=== PATIENT | male | born 1945 | race Caucasian/White ===

== ENCOUNTER 2019-01-27 10:31 | Inpatient (IN) | payer OTHER, BC ==
--- NOTE | 2019-01-27 10:58 | PDOC ---
History of Present Illness - General Chief Complaint: Edema Stated Complaint: LEG SWELLING Time Seen by Provider: 01/27/19 10:32 - History of Present Illness Initial Comments: 01/27/19 10:53 73 yo M PMH HTN, HLD, b/l rotator cuff surgeries with loss of full ROM on R shoulder, 1.5 ppd smoker, p/w b/l leg swelling. Reports that the swelling has been present for the past 3 weeks, initially only in the feet but now progressing up to his knee over the past week. Has never had this issue in the past. Began to have SHAH last week, without SOB at rest. For the past 3 days, patient reports that he has not been moving around due to his legs feeling so heavy. Specifically denies CP, SOB at rest, abdominal pain, AGARWAL, N/V, recent travel, recent immobilization, recent surgery. Endorses SHAH and leg swelling. Past History - Past Medical History Allergies/Adverse Reactions: Allergies Allergy/AdvReac Type Severity Reaction Status Date / Time No Known Allergies Allergy Verified 01/27/19 10:32 Home Medications: Ambulatory Orders Amlodipine Besylate [Norvasc -] 5 mg PO HS 01/27/19 Aspirin [ASA -] 325 mg PO HS 01/27/19 Gabapentin [Neurontin] 300 mg PO HS 01/27/19 Losartan Potassium [Cozaar] 100 mg PO DAILY 01/27/19 Nebivolol HCl [Bystolic] 10 mg PO DAILY 01/27/19 Rosuvastatin Calcium [Crestor] 5 mg PO HS 01/27/19 Anemia: No Asthma: No Cancer: No Cardiac Disorders: No CVA: No COPD: No CHF: No Dementia: No Diabetes: No GI Disorders: No Disorders: No HTN: Yes Hypercholesterolemia: Yes Liver Disease: No Seizures: No Thyroid Disease: No - Surgical History Abdominal Surgery: No Cardiac Surgery: No Lung Surgery: No Neurologic Surgery: No Orthopedic Surgery: Yes (RIGHT KNEE MENISCUS REPAIR) - Psycho Social/Smoking Cessation Hx Smoking History: Current every day smoker Have you smoked in the past 12 months: Yes Number of Cigarettes Smoked Daily: 30 Information on smoking cessation initiated: Yes Hx Alcohol Use: Yes (DAILY) Drug/Substance Use Hx: No Substance Use Type: Alcohol Hx Substance Use Treatment: No Review of Systems - Review of Systems Comments:: 01/27/19 10:56 GENERAL/CONSTITUTIONAL: No fever or chills. No weakness. HEAD, EYES, EARS, NOSE AND THROAT: No change in vision. No ear pain or discharge. No sore throat. CARDIOVASCULAR: No chest pain or shortness of breath. Endorses dyspnea on exertion. RESPIRATORY: No cough, wheezing, or hemoptysis. GASTROINTESTINAL: No nausea, vomiting, diarrhea or constipation. GENITOURINARY: No dysuria, frequency, or change in urination. MUSCULOSKELETAL: No joint or muscle swelling or pain. No neck or back pain. SKIN: No rash NEUROLOGIC: No headache, vertigo, loss of consciousness, or change in strength/ sensation. ENDOCRINE: No increased thirst. No abnormal weight change. HEMATOLOGIC/LYMPHATIC: No anemia, easy bleeding, or history of blood clots. ALLERGIC/IMMUNOLOGIC: No hives or skin allergy *Physical Exam - Vital Signs Last Vital Signs Temp Pulse Resp BP Pulse Ox 97.8 F 92 H 20 141/78 97 01/27/19 10:32 01/27/19 10:32 01/27/19 10:32 01/27/19 10:32 01/27/19 10:32 - Physical Exam 01/27/19 10:57 Gen: well-developed, well-nourished, NAD Neuro: AAOX4, CN II-XII intact, FTN intact, EOMI, PERRLA, 5/5 strength, SILT HEENT: atraumatic, normocephalic Neck: trachea midline, supple CV: regular rate, irregularly irregular, no murmurs, rubs, or gallops Pulm: coarse lung sounds b/l Abd: soft, non-distended, non-tender MSK: full ROM, intact pulses Extr: 3+ symmetric bilateral pitting edema to the knees, no deformities Skin: warm, dry ED Treatment Course - LABORATORY CBC & Chemistry Diagram: 01/27/19 10:57 01/27/19 10:52 - RADIOLOGY Radiology Studies Ordered: Category Date Time Status CHEST PA & LAT [RAD] Stat Radiology 01/27/19 10:52 Ordered Medical Decision Making - Medical Decision Making 01/27/19 10:52 Concern for acute onset CHF v venous stasis. B/l DVTs unlikely considering symmetric nature, no recent travel, no recent immobilization, history of disease. - CBC, CMP, BNP - EKG, trop - Chest PA + L 01/27/19 11:07 EKG with atrial fibrillation at 88 bpm, diffuse T wave flattening. Patient without known history of atrial fibrillation. 01/27/19 11:34 Na 127, Cl 94. Trop negative. 01/27/19 12:10 CXR with R lower lobe infiltrate. No systemic symptoms of cough, SOB, or fevers , but will give ceftriaxone and azithromycin. 01/27/19 12:45 BNP 1075.4. Discharge - Discharge Information Problems reviewed: Yes Clinical Impression/Diagnosis: Leg swelling, Atrial fibrillation Condition: Stable - Follow up/Referral Referrals: Sanket Becker MD [Primary Care Provider] - - Patient Discharge Instructions - Post Discharge Activity
[2019-01-27 11:07] LABS: BASO % 2.8 % (0-2.0); EOS % 0.3 % (0-4.5); HEMATOCRIT 43.5 % (35.4-49); HEMOGLOBIN 14.5 GM/dl (11.7-16.9); LYMPH % 13.3 % (8-40); MCH 34.5 pg (25.7-33.7); MCHC 33.4 g/dl (32.0-35.9); MEAN CELL VOLUME 103.4 fl (80-96); MONO % 6.7 % (3.8-10.2); NEUT % 76.9 % (42.8-82.8); RBC 4.21 M/mm3 (4.00-5.60); RDW 12.7 % (11.9-15.9); WHITE BLOOD COUNT 10.2 K/mm3 (4.0-10.8)
[2019-01-27 11:23] LABS: ALBUMIN 3.8 g/dl (3.4-5.0); BILIRUBIN,TOTAL 1.6 mg/dl (0.2-1); CALCIUM 8.7 mg/dl (8.5-10); POTASSIUM 4.1 mmol/L (3.5-5.1); TOT PROT 6.5 g/dl (6.4-8.2)
[2019-01-27 11:25] LABS: MEAN PLT VOLUME 7.7 fl (7.5-11.1); PLATELET COUNT 288 K/MM3 (134-434)
[2019-01-27 11:34] LABS: INR 1.2 (0.82-1.09); PROTHROMBIN TIME (PATIENT) 13.4 SEC (10.2-13.0)
--- NOTE | 2019-01-27 11:46 | PDOC ---
Attending Attestation - Resident Resident Name: Naveen Palm - ED Attending Attestation I have performed the following: I have examined & evaluated the patient, The case was reviewed & discussed with the resident, I agree w/resident's findings & plan, Exceptions are as noted - HPI HPI: 01/27/19 11:30 73-year-old male with a history of hypertension, hyperlipidemia, active smoker presents to the emergency department with 3 weeks of progressive lower extremity edema associated with 1 week of dyspnea on exertion. Patient reports the lower extremity edema is equal between both of his legs. He does not note a change in the beginning or end of the day. He denies any recent travel or immobility. He does note that it is been harder to get around for the past 3 days due to the heaviness in both of his legs from the swelling. He spoke with his primary care physician Dr. Becker who advised him to come into the emergency department for evaluation. He reports dyspnea on exertion when helping his carry the groceries which is new this week. He denies any chest pain. Denies any dizziness, focal weakness or numbness, no diaphoresis, abdominal pain , nausea, vomiting, diarrhea, urinary symptoms. - Physicial Exam PE: 01/27/19 11:46 GENERAL: Awake, alert, and fully oriented, in no acute distress EYES: PERRLA, EOMI, sclera anicteric, conjunctiva clear ENT: Oropharynx clear without exudates. Moist mucosa NECK: Normal ROM, supple, no lymphadenopathy, JVD, or masses LUNGS: Diminished BS at the bases, course BS throughout. No wheezes, and no crackles HEART: Irregularly irregular, normal S1 and S2, no murmurs, rubs or gallops ABDOMEN: Soft, nontender, normoactive bowel sounds. No guarding, no rebound. No masses EXTREMITIES: 2+ pitting edema to knees b/l, symmetric, mildly tender. WWP distally NEUROLOGICAL: Normal speech, cranial nerves intact, equal strength and sensation b/l SKIN: Warm, Dry, normal turgor, no rashes or lesions noted. - Medical Decision Making 01/27/19 11:48 73-year-old male with a history of hypertension, hyperlipidemia presents to the emergency department with dyspnea on exertion and progressive bilateral lower extremity edema. EKG consistent with new onset atrial fibrillation. Likely CHF in the setting of new A. fib. Will obtain labs including troponin, BNP, and chest x-ray. Anticipate admission.
[2019-01-27] MEDS ORDERED: FUROSEMIDE 40 MG/4 ML INJECTABLE VIAL IVPUSH ONE (12:06)
[2019-01-27] MEDS ORDERED: CEFTRIAXONE 1 GM in DEXTROSE 5%-WATER - 100 ML IVPB ONE (12:10)
[2019-01-27] MEDS ORDERED: AZITHROMYCIN IVPB 500 MG in DEXTROSE 5%-WATER - 250 ML IVPB ONE (12:10)
[2019-01-27] MEDS ORDERED: cefTRIAXone SODIUM 1 GM VIAL ONE (12:13)
[2019-01-27] MEDS ORDERED: FUROSEMIDE 40 MG/4 ML INJECTABLE VIAL ONE (12:13)
[2019-01-27] MEDS ORDERED: AZITHROMYCIN 500 MG VIAL IVPB ONE (12:31)
[2019-01-27 15:16] VITALS: BMI 30.8
--- NOTE | 2019-01-27 15:17 | HP ---
CHIEF COMPLAINT: Lower extremity swelling PCP: Dr. Becker HISTORY OF PRESENT ILLNESS: 73 year-old male with a PMH significant for HTN, HLD, active smoker, who presents to the ED with lower extremity edema x 3 weeks. Edema started in his feet and progressed up his legs to the point that as of about 4 days ago he was unable to lift his legs or walk because his legs were so heavy. He reports one week of SHAH, became SOB helping his carry groceries. Denies chest pain, palpitations, lightheadedness, syncope, orthopnea. Denies fever, sweats, chills. 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 Smoking: current every day smoker Alcohol: daily vodka - 2-3 drinks Drugs: no Allergies No Known Allergies Allergy (Verified 01/27/19 10:32) HOME MEDICATIONS: Home Medications Medication Instructions Recorded Amlodipine Besylate [Norvasc -] 5 mg PO HS 01/27/19 Aspirin [ASA -] 325 mg PO HS 01/27/19 Gabapentin [Neurontin] 300 mg PO HS 01/27/19 Losartan Potassium [Cozaar] 100 mg PO DAILY 01/27/19 Nebivolol HCl [Bystolic] 10 mg PO DAILY 01/27/19 Rosuvastatin Calcium [Crestor] 5 mg PO HS 01/27/19 REVIEW OF SYSTEMS CONSTITUTIONAL: Absent: fever, chills, diaphoresis, generalized weakness, malaise, loss of appetite, weight change HEENT: Absent: rhinorrhea, nasal congestion, throat pain, throat swelling, difficulty swallowing, mouth swelling, ear pain, eye pain, visual changes CARDIOVASCULAR: Absent: chest pain, syncope, palpitations, irregular heart rate, lightheadedness , peripheral edema RESPIRATORY: Absent: cough, shortness of breath, dyspnea with exertion, orthopnea, wheezing, stridor, hemoptysis GASTROINTESTINAL: Absent: abdominal pain, abdominal distension, nausea, vomiting, diarrhea, constipation, melena, hematochezia GENITOURINARY: Absent: dysuria, frequency, urgency, hesitancy, hematuria, flank pain, genital pain MUSCULOSKELETAL: Absent: myalgia, arthralgia, joint swelling, back pain, neck pain SKIN: Absent: rash, itching, pallor HEMATOLOGIC/IMMUNOLOGIC: Absent: easy bleeding, easy bruising, lymphadenopathy, frequent infections ENDOCRINE: Absent: unexplained weight gain, unexplained weight loss, heat intolerance, cold intolerance NEUROLOGIC: Absent: headache, focal weakness or paresthesias, dizziness, unsteady gait, seizure, mental status changes, bladder or bowel incontinence PSYCHIATRIC: Absent: anxiety, depression, suicidal or homicidal ideation, hallucinations. PHYSICAL EXAMINATION Vital Signs - 24 hr 01/27/19 01/27/19 01/27/19 10:32 12:26 13:43 Temperature 97.8 F 98.2 F Pulse Rate 92 H Pulse Rate [ 81 84 Apical] Respiratory 24 H 24 H 22 H Rate Blood Pressure 141/78 Blood Pressure 119/95 103/62 [Right Arm] O2 Sat by Pulse 97 96 97 Oximetry (%) 01/27/19 01/27/19 14:05 14:31 Temperature 98.8 F 98.8 F Pulse Rate 86 86 Pulse Rate [ Apical] Respiratory 16 16 Rate Blood Pressure 106/62 106/62 Blood Pressure [Right Arm] O2 Sat by Pulse 94 L Oximetry (%) GENERAL: Awake, alert, and fully oriented, in no acute distress. HEAD: Normal with no signs of trauma. EYES: Pupils equal, round and reactive to light, extraocular movements intact, sclera anicteric, conjunctiva clear. EARS, NOSE, THROAT: Ears normal, nares patent, oropharynx clear without exudates. Moist mucous membranes. NECK: Normal range of motion, supple without lymphadenopathy, JVD, or masses. LUNGS: Coarse breath sounds diffusely HEART: Irregular S1, S2 ABDOMEN: Soft, nontender, not distended UPPER EXTREMITIES: 2+ pulses, warm, well-perfused. No cyanosis. No clubbing. No peripheral edema. LOWER EXTREMITIES: 2+ pulses, warm, well-perfused. No calf tenderness. 4+ pitting edema b/l NEUROLOGICAL: Cranial nerves II-XII intact. Normal speech. Laboratory Results - last 24 hr 01/27/19 01/27/19 01/27/19 10:52 10:52 10:52 WBC RBC Hgb Hct MCV MCH MCHC RDW Plt Count MPV Absolute Neuts (auto) Neutrophils % Lymphocytes % Monocytes % Eosinophils % Basophils % PT with INR INR PTT (Actin FS) Sodium 127 L Potassium 4.1 Chloride 94 L Carbon Dioxide 25 Anion Gap 8 BUN 17.0 Creatinine 1.0 Est GFR (CKD-EPI)AfAm 85.55 Est GFR (CKD-EPI)NonAf 73.82 Random Glucose 96 Calcium 8.7 Total Bilirubin 1.6 H AST 27 ALT 29 Alkaline Phosphatase 74 Troponin I < 0.03 B-Natriuretic Peptide 1075.4 H Total Protein 6.5 Albumin 3.8 01/27/19 01/27/19 01/27/19 10:57 11:08 11:08 WBC 10.2 RBC 4.21 Hgb 14.5 Hct 43.5 MCV 103.4 H MCH 34.5 H MCHC 33.4 RDW 12.7 Plt Count 288 MPV 7.7 Absolute Neuts (auto) 7.8 Neutrophils % 76.9 Lymphocytes % 13.3 Monocytes % 6.7 Eosinophils % 0.3 Basophils % 2.8 H D PT with INR 13.4 H INR 1.20 PTT (Actin FS) 30.8 Sodium Potassium Chloride Carbon Dioxide Anion Gap BUN Creatinine Est GFR (CKD-EPI)AfAm Est GFR (CKD-EPI)NonAf Random Glucose Calcium Total Bilirubin AST ALT Alkaline Phosphatase Troponin I B-Natriuretic Peptide Total Protein Albumin ASSESSMENT/PLAN: 73 year-old male with a PMH significant for HTN, HLD, active smoker, admitted for newly diagnosed atrial fibrillation, and suspected heart failure, and hyponatremia. Newly diagnosed atrial fibrillation --symptomatic x 3 weeks --ECG: afib @ 88bpm --has been on Bystolic for HTN, will continue as rate is well-controlled --[id number] Score 2; start Eliquis 5mg BID --Echo in am --cardiology consult --telemetry monitoring r/o Heart failure --significant lower extremity edema, BNP 1075 --Lasix IVP 40mg BID --strict I&Os --daily weights; dry weight is 90.9kg, is 97.5kg on admission Hyponatremia --should improve with diuresis, check labs in am Segmental RLL lung infiltrate --afebrile, no leukocytosis, and worsening of baseline cough secondary to smoking --repeat cxr FEN Fluids: PO intake adequate Electrolytes: replete as indicated Nutrition: low sodium DVT prophylaxis: on Eliquis Physical therapy Dispo: continues to require inpatient care. Full code. Visit type - Emergency Visit Emergency Visit: Yes ED Registration Date: 01/27/19 Care time: The patient presented to the Emergency Department on the above date and was hospitalized for further evaluation of their emergent condition. - New Patient This patient is new to me today: Yes Date on this admission: 01/28/19 - Critical Care Critical Care patient: No
[2019-01-27] MEDS: ROSUVASTATIN CA 5 MG TABLET (FP) PO SCH (22:00)
[2019-01-27] MEDS: GABAPENTIN 300 MG CAPSULE (FP) PO SCH (22:00)
[2019-01-27] MEDS: amLODIPine BESYLATE 5 MG TABLET (FP) PO SCH (22:01)
[2019-01-27] MEDS: ASPIRIN 325 MG TABLET PO SCH (22:01)
[2019-01-28] MEDS: FUROSEMIDE 40 MG/4 ML INJECTABLE VIAL IVPUSH SCH ×2 (06:02→14:05)
[2019-01-28 08:05] LABS: BASO % 0.5 % (0-2.0); EOS % 0.4 % (0-4.5); HEMATOCRIT 42.1 % (35.4-49); LYMPH % 10.3 % (8-40); MCH 34.6 pg (25.7-33.7); MCHC 33.3 g/dl (32.0-35.9); MEAN CELL VOLUME 103.8 fl (80-96); MEAN PLT VOLUME 8.3 fl (7.5-11.1); MONO % 7.9 % (3.8-10.2); NEUT % 80.9 % (42.8-82.8); PLATELET COUNT 274 K/MM3 (134-434); RBC 4.06 M/mm3 (4.00-5.60); RDW 12.6 % (11.9-15.9); WHITE BLOOD COUNT 10.1 K/mm3 (4.0-10.8)
[2019-01-28 08:28] LABS: ALBUMIN 3.4 g/dl (3.4-5.0); BILIRUBIN,TOTAL 1.3 mg/dl (0.2-1); CALCIUM 8.9 mg/dl (8.5-10); CREATININE 0.9 mg/dl (0.55-1.3); MAGNESIUM 1.6 mg/dL (1.8-2.4); TOT PROT 5.8 g/dl (6.4-8.2)
[2019-01-28] MEDS ORDERED: MAGNESIUM SULF 50% (8.12 MEQ/2 ML-1 GM VIAL) IVPB ONE (09:03)
[2019-01-28] MEDS ORDERED: MAGNESIUM SULFATE IN WATER 2 GM/50 ML IVPB IVPB ONE (09:15)
[2019-01-28] MEDS: APIXABAN 5 MG TABLET PO SCH ×2 (09:21→21:23)
[2019-01-28] MEDS: NEBIVOLOL 10 MG TABLET (FP) PO SCH (09:22)
[2019-01-28] MEDS: LOSARTAN POTASSIUM 50 MG TABLET (FP) PO SCH (09:22)
[2019-01-28] MEDS ORDERED: ENOXAPARIN NA (PORCINE) 40 MG/0.4 ML DISP.SYRIN SQ SCH (10:00)
--- NOTE | 2019-01-28 10:09 | EKG ---
Test Reason : Blood Pressure : / mmHG Vent. Rate : 088 BPM Atrial Rate : 065 BPM P-R Int : 000 ms QRS Dur : 074 ms QT Int : 358 ms P-R-T Axes : 000 016 217 degrees QTc Int : 433 ms ATRIAL FIBRILLATION NONSPECIFIC ST AND T WAVE ABNORMALITY ABNORMAL ECG NO PREVIOUS ECGS AVAILABLE Confirmed by YANELY YEE MD ([id number]) on 01/28/2019 10:09:08 AM Referred By: Confirmed By:YANELY YEE MD
--- NOTE | 2019-01-28 15:33 | ECHO ---
Name: ISAAC LOGAN Exam:Adult Echocardiogram Study Date: 01/28/2019 01:29 PM Age: 73 yrs Reason For Study: CHF Height: 70 in Weight: 209 lb BSA: 2.1 m2 MMode/2D Measurements & Calculations Ao root diam: 3.2 cm LVOT diam: 2.0 cm LA dimension: 3.8 cm Doppler Measurements & Calculations MV E max kurt: 94.2 cm/sec MV A max kurt: 27.6 cm/sec MV dec slope: 400.0 cm/sec2 MV E/A: 3.4 Ao V2 max: 104.8 cm/sec LV V1 max P.0 mmHg Ao max P.4 mmHg LV V1 max: 71.4 cm/sec TIFFANIE(V,D): 2.2 cm2 TR max kurt: 303.0 cm/sec PA V2 max: 73.3 cm/sec TR max P.7 mmHg PA max P.1 mmHg Procedure A two-dimensional transthoracic echocardiogram with color flow and Doppler was performed. The study w as technically difficult with many images being suboptimal in quality. Left Ventricle The left ventricular size, thickness and function are normal. The left ventricle is not well visualiz ed. The left ventricular ejection fraction is normal. Regional wall motion abnormalities cannot be excluded d ue to limited visualization. Right Ventricle The right ventricle is not well visualized. Atria Normal left and right atrial size and function. Mitral Valve The mitral valve is not well visualized. There is no mitral valve stenosis. There is trace to mild mi tral regurgitation. Tricuspid Valve The tricuspid valve is not well visualized. There is no tricuspid stenosis. There is mild tricuspid regurgitation. Right ventricular systolic pressure is elevated at 40-50mmHg. Aortic Valve The aortic valve is not well visualized. No hemodynamically significant valvular aortic stenosis. No aortic regurgitation is present. Pulmonic Valve The pulmonic valve is not well visualized. Great Vessels The aortic root is normal size. Pericardium/Pleura There is no pericardial effusion. Interpretation Summary The left ventricular ejection fraction is normal. The left ventricle is not well visualized. The left ventricular size, thickness and function are normal The study was technically difficult with many images being suboptimal in quality. There is mild tricuspid regurgitation. Right ventricular systolic pressure is elevated at 40-50mmHg. Regional wall motion abnormalities cannot be excluded due to limited visualization. There is trace to mild mitral regurgitation. MD Bartolo Weller 01/28/2019 03:33 PM
--- NOTE | 2019-01-28 16:24 | CON.CARD ---
Cardiology Consult (text) - Consultation Consultation Note: cc: le edema, sob hpi: 73 m hx htn, hld, here with le edema , sob. Past few weeks pt noticed worsening le edema and sharif. No cp palps dizzy loc pnd orthopnea. No hx hrt dz. Found to have new afib and dchf. pmh: per hpi psh: shoulder surgery social: +tob fam: no premature cad, scd ros: per hpi; all others nl meds: Home Medications Medication Instructions Recorded Amlodipine Besylate [Norvasc -] 5 mg PO HS 01/27/19 Aspirin [ASA -] 325 mg PO HS 01/27/19 Gabapentin [Neurontin] 300 mg PO HS 01/27/19 Losartan Potassium [Cozaar] 100 mg PO DAILY 01/27/19 Nebivolol HCl [Bystolic] 10 mg PO DAILY 01/27/19 Rosuvastatin Calcium [Crestor] 5 mg PO HS 01/27/19 pe: Vital Signs Period Temp Pulse Resp BP Sys/Hartman Pulse Ox Last 24 Hr 98.4 F-98.8 F 69-84 - 106-130/63-66 90-96 nad no jvd irreg s1s2 no mrg cta bl nl eff aao3 trace le edema bl, no c/c abd nt nd pos bs no jaundice diaphoresis pos dp pt no carotid bruits Laboratory Last Values WBC 10.1 K/mm3 (4.0-10.8) 01/28/19 07:09 RBC 4.06 M/mm3 (4.00-5.60) 01/28/19 07:09 Hgb 14.0 GM/dl (11.7-16.9) 01/28/19 07:09 Hct 42.1 % (35.4-49) 01/28/19 07:09 MCV 103.8 fl (80-96) H 01/28/19 07:09 MCH 34.6 pg (25.7-33.7) H 01/28/19 07:09 MCHC 33.3 g/dl (32.0-35.9) 01/28/19 07:09 RDW 12.6 % (11.9-15.9) 01/28/19 07:09 Plt Count 274 K/MM3 (134-434) 01/28/19 07:09 MPV 8.3 fl (7.5-11.1) 01/28/19 07:09 Absolute Neuts (auto) 8.2 K/mm3 01/28/19 07:09 Neutrophils % 80.9 % (42.8-82.8) 01/28/19 07:09 Lymphocytes % 10.3 % (8-40) D 01/28/19 07:09 Monocytes % 7.9 % (3.8-10.2) 01/28/19 07:09 Eosinophils % 0.4 % (0-4.5) 01/28/19 07:09 Basophils % 0.5 % (0-2.0) 01/28/19 07:09 PT with INR 13.4 SEC (10.2-13.0) H 01/27/19 11:08 INR 1.20 (0.82-1.09) 01/27/19 11:08 PTT (Actin FS) 30.8 SECONDS (25.2-36.5) 01/27/19 11:08 Sodium 131 mmol/L (136-145) L 01/28/19 07:09 Potassium 4.0 mmol/L (3.5-5.1) 01/28/19 07:09 Chloride 94 mmol/L (98-107) L 01/28/19 07:09 Carbon Dioxide 28 mmol/L (21-32) 01/28/19 07:09 Anion Gap 9 MMOL/L (8-16) 01/28/19 07:09 BUN 13.0 mg/dl (7-18) 01/28/19 07:09 Creatinine 0.9 mg/dl (0.55-1.3) 01/28/19 07:09 Est GFR (CKD-EPI)AfAm 97.17 01/28/19 07:09 Est GFR (CKD-EPI)NonAf 83.84 01/28/19 07:09 Random Glucose 101 mg/dl (74-106) 01/28/19 07:09 Calcium 8.9 mg/dl (8.5-10) 01/28/19 07:09 Magnesium 1.6 mg/dL (1.8-2.4) L 01/28/19 07:09 Total Bilirubin 1.3 mg/dl (0.2-1) H 01/28/19 07:09 AST 24 U/L (15-37) 01/28/19 07:09 ALT 24 U/L (13-61) 01/28/19 07:09 Alkaline Phosphatase 68 U/L (45-117) 01/28/19 07:09 Troponin I < 0.03 ng/ml (0.00-0.05) 01/27/19 10:52 B-Natriuretic Peptide 1075.4 pg/ml (5-125) H 01/27/19 10:52 Total Protein 5.8 g/dl (6.4-8.2) L 01/28/19 07:09 Albumin 3.4 g/dl (3.4-5.0) 01/28/19 07:09 cxr: no chf tele: afib, rate ok ecg: afib 88, nl qtc, no ischemic changes echo 01/2019: nl lvef, tds rv, mild tr, rvsp 40-50 a/p: 73 m hx htn, hld, here with le edema , sob. afib: -new onset afib -cont bb for rate control, cont tele -chadsvasc warrants ac, cont eliquis acute diastolic chf: -possibly secondary to afib -vol status improving with iv lasix, cont same, daily chem7, wt htn: -cont current meds hld: -cont statin tob use: -smoking cessation discussed
[2019-01-28] MEDS: ASPIRIN 325 MG TABLET PO SCH (21:22)
[2019-01-28] MEDS: GABAPENTIN 300 MG CAPSULE (FP) PO SCH (21:23)
[2019-01-28] MEDS: amLODIPine BESYLATE 5 MG TABLET (FP) PO SCH (21:23)
[2019-01-28] MEDS: ROSUVASTATIN CA 5 MG TABLET (FP) PO SCH (21:23)
--- NOTE | 2019-01-28 22:10 | PN ---
Physical Exam: SUBJECTIVE: Patient seen and examined at bedside. Walked with PT today, was able to move legs a little better but felt SOB. No chest pain, palpitations. OBJECTIVE: Vital Signs Period Temp Pulse Resp BP Sys/Hartman Pulse Ox Last 24 Hr 98.4 F-99 F 77-89 16-19 117-130/63-65 90-96 GENERAL: The patient is awake, alert, and fully oriented, in no acute distress. LUNGS: Breath sounds equal, clear to auscultation HEART: Irregular, S1, S2 . EXTREMITIES: 2+ pulses, warm, well-perfused; 2+ bilateral lower ext edema, improved NEUROLOGICAL: Cranial nerves II through XII grossly intact. Normal speech, gait not observed. Laboratory Results - last 24 hr 01/28/19 01/28/19 07:09 07:09 WBC 10.1 RBC 4.06 Hgb 14.0 Hct 42.1 MCV 103.8 H MCH 34.6 H MCHC 33.3 RDW 12.6 Plt Count 274 MPV 8.3 Absolute Neuts (auto) 8.2 Neutrophils % 80.9 Lymphocytes % 10.3 D Monocytes % 7.9 Eosinophils % 0.4 Basophils % 0.5 Sodium 131 L Potassium 4.0 Chloride 94 L Carbon Dioxide 28 Anion Gap 9 BUN 13.0 Creatinine 0.9 Est GFR (CKD-EPI)AfAm 97.17 Est GFR (CKD-EPI)NonAf 83.84 Random Glucose 101 Calcium 8.9 Magnesium 1.6 L Total Bilirubin 1.3 H AST 24 ALT 24 Alkaline Phosphatase 68 Total Protein 5.8 L Albumin 3.4 Active Medications Generic Name Dose Route Start Last Admin Trade Name Aster PRN Reason Stop Dose Admin Amlodipine Besylate 5 mg 01/27/19 22:00 01/28/19 21:23 Norvasc - PO 5 mg HS GEORGES Administration Apixaban 5 mg 01/28/19 10:00 01/28/19 21:23 Eliquis - PO 5 mg BID GEORGES Administration Aspirin 325 mg 01/27/19 22:00 01/28/19 21:22 Asa - PO 325 mg HS GEORGES Administration Furosemide 40 mg 01/28/19 06:00 01/28/19 14:05 Lasix Injection - IVPUSH 40 mg BID@0600,1400 GEORGES Administration Gabapentin 300 mg 01/27/19 22:00 01/28/19 21:23 Neurontin - PO 300 mg HS GEORGES Administration Losartan Potassium 100 mg 01/28/19 10:00 01/28/19 09:22 Cozaar - PO 100 mg DAILY GEORGES Administration Nebivolol 10 mg 01/28/19 10:00 01/28/19 09:22 Bystolic - PO 10 mg DAILY GEORGES Administration Rosuvastatin Calcium 5 mg 01/27/19 22:00 01/28/19 21:23 Crestor - PO 5 mg HS GEORGES Administration ASSESSMENT/PLAN 73 year-old male with a PMH significant for HTN, HLD, active smoker, admitted for newly diagnosed atrial fibrillation, and suspected heart failure, and hyponatremia. Newly diagnosed atrial fibrillation --ECG: afib @ 88bpm --continue Bystolic, rate is well-controlled --[id number] Score 2; continue Eliquis 5mg BID --cardiology following --telemetry monitoring Acute diastolic heart failure --Echo: suboptimal study; neither LV nor RV well-visualized but EF is assessed as normal; cannot assess RWMA; mild TR; pHTN; trace MR --significant lower extremity edema, BNP 1075 --diagnosis of acute diastolic HF per cardiology --continue Lasix IVP 40mg BID --strict I&Os --daily weights; dry weight is 90.9kg; 97.5kg on admission, down 3kg today Hyponatremia --improved with diuresis Segmental RLL lung infiltrate --afebrile, no leukocytosis, and worsening of baseline cough secondary to smoking --repeat CXR pending Hypomagnesemia --repleted FEN Fluids: PO intake adequate Electrolytes: replete as indicated Nutrition: low sodium DVT prophylaxis: on Eliquis Physical therapy Dispo: continues to require inpatient care. Full code. Visit type - Emergency Visit Emergency Visit: Yes ED Registration Date: 01/27/19 Care time: The patient presented to the Emergency Department on the above date and was hospitalized for further evaluation of their emergent condition. - New Patient This patient is new to me today: No - Critical Care Critical Care patient: No
[2019-01-29] MEDS: MINERAL OIL/PET HY-PHL TOPICAL OINTMENT 454 GM JAR TP SCH ×3 (02:06→21:25)
[2019-01-29] MEDS: FUROSEMIDE 40 MG/4 ML INJECTABLE VIAL IVPUSH SCH ×2 (06:00→13:19)
[2019-01-29 09:23] LABS: CALCIUM 9.2 mg/dl (8.5-10); CREATININE 0.9 mg/dl (0.55-1.3); MAGNESIUM 1.7 mg/dL (1.8-2.4); POTASSIUM 3.8 mmol/L (3.5-5.1)
[2019-01-29] MEDS: LOSARTAN POTASSIUM 50 MG TABLET (FP) PO SCH (09:28)
[2019-01-29] MEDS: NEBIVOLOL 10 MG TABLET (FP) PO SCH (09:28)
[2019-01-29] MEDS: APIXABAN 5 MG TABLET PO SCH ×2 (09:28→21:25)
[2019-01-29] MEDS: AZITHROMYCIN IVPB 250 MG in DEXTROSE 5%-WATER - 250 ML IVPB SCH (09:44)
[2019-01-29] MEDS: CEFTRIAXONE 1 G/50 ML PREMIX 50 ML IVPB SCH (09:44)
[2019-01-29] MEDS ORDERED: MAGNESIUM SULF 50% (8.12 MEQ/2 ML-1 GM VIAL) IVPB ONE (10:45)
[2019-01-29] MEDS ORDERED: MAGNESIUM SULFATE IN WATER 2 GM/50 ML IVPB IVPB ONE (11:00)
--- NOTE | 2019-01-29 16:43 | PN ---
Physical Exam: SUBJECTIVE: Patient seen and examined oob to chair. Voices no physical complaints. Feels leg edema is much better. OBJECTIVE: Vital Signs Period Temp Pulse Resp BP Sys/Hartman Pulse Ox Last 24 Hr 98.3 F-99 F 72-94 17-19 109-121/51-69 94-98 GENERAL: The patient is awake, alert, and fully oriented, in no acute distress. Depressed affect, irritable. LUNGS: Breath sounds equal, clear to auscultation HEART: Irregular, S1, S2 . EXTREMITIES: 2+ pulses, warm, well-perfused; 1+ bilateral lower ext edema, improved NEUROLOGICAL: Cranial nerves II through XII grossly intact. Normal speech, gait not observed. Laboratory Results - last 24 hr 01/29/19 08:44 Sodium 133 L Potassium 3.8 Chloride 87 L Carbon Dioxide 34 H Anion Gap 12 BUN 14.0 Creatinine 0.9 Est GFR (CKD-EPI)AfAm 97.17 Est GFR (CKD-EPI)NonAf 83.84 Random Glucose 106 Calcium 9.2 Magnesium 1.7 L Active Medications Generic Name Dose Route Start Last Admin Trade Name Freq PRN Reason Stop Dose Admin Amlodipine Besylate 5 mg 01/27/19 22:00 01/28/19 21:23 Norvasc - PO 5 mg HS GEORGES Administration Apixaban 5 mg 01/28/19 10:00 01/29/19 09:28 Eliquis - PO 5 mg BID GEORGES Administration Aspirin 325 mg 01/27/19 22:00 01/28/19 21:22 Asa - PO 325 mg HS GEORGES Administration Emollient Ointment 1 applic 01/28/19 22:00 01/29/19 09:27 Aquaphor - TP 1 applic BID GEORGES Administration Furosemide 40 mg 01/28/19 06:00 01/29/19 13:19 Lasix Injection - IVPUSH 40 mg BID@0600,1400 GEORGES Administration Gabapentin 300 mg 01/27/19 22:00 01/28/19 21:23 Neurontin - PO 300 mg HS GEORGES Administration Azithromycin 250 mg/ Dextrose 250 mls @ 250 mls/hr 01/29/19 10:00 01/29/19 09 :44 IVPB 02/01/19 10:59 250 mls/hr DAILY GEORGES Administration Ceftriaxone Sodium 50 mls @ 100 mls/hr 01/29/19 10:00 01/29/19 09:44 Ceftriaxone 1 Gm-D5w Bag IVPB 100 mls/hr DAILY GEORGES Administration Protocol Losartan Potassium 100 mg 01/28/19 10:00 01/29/19 09:28 Cozaar - PO 100 mg DAILY GEORGES Administration Nebivolol 10 mg 01/28/19 10:00 01/29/19 09:28 Bystolic - PO 10 mg DAILY GEORGES Administration Rosuvastatin Calcium 5 mg 01/27/19 22:00 01/28/19 21:23 Crestor - PO 5 mg HS GEORGES Administration ASSESSMENT/PLAN 73 year-old male with a PMH significant for HTN, HLD, active smoker, admitted for newly diagnosed atrial fibrillation, and suspected heart failure, and hyponatremia. Newly diagnosed atrial fibrillation --continue Bystolic, rate is well-controlled --[id number] Score 2; continue Eliquis 5mg BID --cardiology following --telemetry monitoring: no events Acute diastolic heart failure --Echo: suboptimal study; neither LV nor RV well-visualized but EF is assessed as normal; cannot assess RWMA; mild TR; pHTN; trace MR --significant improvement lower extremity edema, BNP 1075 --continue Lasix IVP 40mg BID, renal function remains stable --strict I&Os --daily weights; dry weight is 90.9kg; 97.5kg on admission, down 9.3kg Hyponatremia --improved with diuresis Bibasilar pneumonia --continue ceftriaxone, azithro FEN Fluids: PO intake adequate Electrolytes: replete as indicated Nutrition: low sodium DVT prophylaxis: on Eliquis Physical therapy Dispo: continues to require inpatient care. Full code. Visit type - Emergency Visit Emergency Visit: Yes ED Registration Date: 01/27/19 Care time: The patient presented to the Emergency Department on the above date and was hospitalized for further evaluation of their emergent condition. - New Patient This patient is new to me today: No - Critical Care Critical Care patient: No
[2019-01-29] MEDS: ROSUVASTATIN CA 5 MG TABLET (FP) PO SCH (21:25)
[2019-01-29] MEDS: GABAPENTIN 300 MG CAPSULE (FP) PO SCH (21:25)
[2019-01-29] MEDS: amLODIPine BESYLATE 5 MG TABLET (FP) PO SCH (21:25)
[2019-01-29] MEDS: ASPIRIN 325 MG TABLET PO SCH (21:25)
[2019-01-30] MEDS: FUROSEMIDE 40 MG/4 ML INJECTABLE VIAL IVPUSH SCH ×2 (05:36→14:50)
[2019-01-30] MEDS: NEBIVOLOL 10 MG TABLET (FP) PO SCH (11:14)
[2019-01-30] MEDS: CEFTRIAXONE 1 G/50 ML PREMIX 50 ML IVPB SCH (11:15)
[2019-01-30] MEDS: APIXABAN 5 MG TABLET PO SCH (11:15)
[2019-01-30] MEDS: LOSARTAN POTASSIUM 50 MG TABLET (FP) PO SCH (11:20)
[2019-01-30] MEDS: MINERAL OIL/PET HY-PHL TOPICAL OINTMENT 454 GM JAR TP SCH (11:20)
[2019-01-30] MEDS: AZITHROMYCIN IVPB 250 MG in DEXTROSE 5%-WATER - 250 ML IVPB SCH (11:29)
[2019-01-30 13:49] LABS: BASO % 1.5 % (0-2.0); EOS % 0.9 % (0-4.5); HEMATOCRIT 44.2 % (35.4-49); HEMOGLOBIN 14.7 GM/dl (11.7-16.9); LYMPH % 11.6 % (8-40); MCH 34.5 pg (25.7-33.7); MCHC 33.3 g/dl (32.0-35.9); MEAN CELL VOLUME 103.7 fl (80-96); MEAN PLT VOLUME 7.7 fl (7.5-11.1); MONO % 9.2 % (3.8-10.2); NEUT % 76.8 % (42.8-82.8); PLATELET COUNT 302 K/MM3 (134-434); RBC 4.26 M/mm3 (4.00-5.60); RDW 12.6 % (11.9-15.9); WHITE BLOOD COUNT 9.5 K/mm3 (4.0-10.8)
[2019-01-30 13:57] LABS: ALBUMIN 3.4 g/dl (3.4-5.0); BILIRUBIN,TOTAL 0.9 mg/dl (0.2-1); CALCIUM 8.9 mg/dl (8.5-10); CREATININE 1.1 mg/dl (0.55-1.3); MAGNESIUM 1.7 mg/dL (1.8-2.4); POTASSIUM 3.5 mmol/L (3.5-5.1)
[2019-01-30] MEDS ORDERED: MAGNESIUM SULF 50% (8.12 MEQ/2 ML-1 GM VIAL) IVPB ONE (14:02)
[2019-01-30] MEDS ORDERED: MAGNESIUM SULFATE IN WATER 2 GM/50 ML IVPB IVPB ONE (14:15)
--- NOTE | 2019-01-30 15:20 | DS ---
Physical Exam: SUBJECTIVE: Patient seen and examined oob to chair. OBJECTIVE: Vital Signs Period Temp Pulse Resp BP Sys/Hartman Pulse Ox Last 24 Hr 97.6 F-98.8 F 79-97 17-20 105-129/60-73 92-97 PHYSICAL EXAM GENERAL: The patient is awake, alert, and fully oriented, in no acute distress. LUNGS: CTA HEART: Irregular S1, s2 EXTREMITIES: 2+ pulses, warm, well-perfused, no edema. NEUROLOGICAL: Cranial nerves II through XII grossly intact. Normal speech, gait not observed. PSYCH: Normal mood, normal affect. SKIN: Warm, dry, normal turgor, no rashes or lesions noted. LABS Laboratory Results - last 24 hr 01/30/19 01/30/19 13:36 13:36 WBC 9.5 RBC 4.26 Hgb 14.7 Hct 44.2 MCV 103.7 H MCH 34.5 H MCHC 33.3 RDW 12.6 Plt Count 302 MPV 7.7 Absolute Neuts (auto) 7.3 Neutrophils % 76.8 Lymphocytes % 11.6 Monocytes % 9.2 Eosinophils % 0.9 D Basophils % 1.5 Sodium 131 L Potassium 3.5 Chloride 88 L Carbon Dioxide 31 Anion Gap 12 BUN 19.0 H Creatinine 1.1 Est GFR (CKD-EPI)AfAm 76.24 Est GFR (CKD-EPI)NonAf 65.78 Random Glucose 123 H Calcium 8.9 Magnesium 1.7 L Total Bilirubin 0.9 AST 26 ALT 25 Alkaline Phosphatase 72 Total Protein 6.0 L Albumin 3.4 HOSPITAL COURSE: Date of Admission:01/27/19 Date of Discharge: 01/30/19 Pre hospital course 73 year-old male with a PMH significant for HTN, HLD, active smoker, who presents to the ED with lower extremity edema x 3 weeks. Edema started in his feet and progressed up his legs to the point that as of about 4 days ago he was unable to lift his legs or walk because his legs were so heavy. He reports one week of SHAH, became SOB helping his carry groceries. Denies chest pain, palpitations, lightheadedness, syncope, orthopnea. Denies fever, sweats, chills. ER course (1) Na 127 (2) CXR: segmental RLL infiltrate (3) ECG afib @ 88bpm Subsequent hospital course 73 year-old male with a PMH significant for HTN, HLD, active smoker, admitted for newly diagnosed atrial fibrillation, heart failure, and hyponatremia. Newly diagnosed atrial fibrillation --ECG: afib @ 88bpm --continued on Bystolic which had been on at home and rate was well- controlled --[id number] Score 2; started on Eliquis 5mg BID --remained hemodynamically stable throughout hospitalization Acute diastolic heart failure --Echo: suboptimal study; neither LV nor RV well-visualized but EF is assessed as normal; cannot assess RWMA; mild TR; pHTN; trace MR --significant lower extremity edema on admission, aggressive diuresis with Lasix, down 9.3kg at time of discharge, renal function stable --continue PO lasix on discharge Hyponatremia --improved with diuresis Bibasilar pneumonia --treated with ceftriaxone and azithro, continue on discharge until course complete Minutes to complete discharge: 35 Discharge Summary Problems reviewed: Yes Reason For Visit: DYSPNEA,NEW ONSET ATRIAL FIBILLATION Current Active Problems Atrial fibrillation (Acute) Leg swelling (Acute) Condition: Stable - Instructions Diet, Activity, Other Instructions: Patient needs ceftriaxone 1g IVPB x 3 doses starting on 01/31/19. He needs one dose of PO azithromycin on 01/31 and the course is finished. He needs to be continued on Eliquis 5mg BID which is a new medication for him. He needs to be continued on Lasix PO 40mg daily which is a new medication for him. Referrals: Sanket Becker MD [Primary Care Provider] - [facility]position: [facility] - Home Medications Comprehensive Discharge Medication List: Ambulatory Orders Amlodipine Besylate [Norvasc -] 5 mg PO HS 01/27/19 Aspirin [ASA -] 325 mg PO HS 01/27/19 Gabapentin [Neurontin] 300 mg PO HS 01/27/19 Losartan Potassium [Cozaar] 100 mg PO DAILY 01/27/19 Nebivolol HCl [Bystolic] 10 mg PO DAILY 01/27/19 Rosuvastatin Calcium [Crestor] 5 mg PO HS 01/27/19 This patient is new to me today: No Emergency Visit: Yes ED Registration Date: 01/27/19 Care time: The patient presented to the Emergency Department on the above date and was hospitalized for further evaluation of their emergent condition. Critical Care patient: No - Discharge Referral Referred to [facility] No
--- NOTE | 2019-01-30 15:48 | PN ---
Progress Note (short form) - Note Progress Note: s: no cp sob palps dizzy Current Medications Generic Name Dose Route Start Last Admin Trade Name Aster PRN Reason Stop Dose Admin Amlodipine Besylate 5 mg 01/27/19 22:00 01/29/19 21:25 Norvasc - PO 5 mg HS GEORGES Administration Apixaban 5 mg 01/28/19 10:00 01/30/19 11:15 Eliquis - PO 5 mg BID GEORGES Administration Aspirin 325 mg 01/27/19 22:00 01/29/19 21:25 Asa - PO 325 mg HS GEORGES Administration Emollient Ointment 1 applic 01/28/19 22:00 01/30/19 11:20 Aquaphor - TP 1 applic BID GEORGES Administration Furosemide 40 mg 01/28/19 06:00 01/30/19 14:50 Lasix Injection - IVPUSH 40 mg BID@0600,1400 GEORGES Administration Gabapentin 300 mg 01/27/19 22:00 01/29/19 21:25 Neurontin - PO 300 mg HS GEORGES Administration Azithromycin 250 mg/ Dextrose 250 mls @ 250 mls/hr 01/29/19 10:00 01/30/19 11 :29 IVPB 02/01/19 10:59 250 mls/hr DAILY GEORGES Administration Ceftriaxone Sodium 50 mls @ 100 mls/hr 01/29/19 10:00 01/30/19 11:15 Ceftriaxone 1 Gm-D5w Bag IVPB 100 mls/hr DAILY GEORGES Administration Protocol Losartan Potassium 100 mg 01/28/19 10:00 01/30/19 11:20 Cozaar - PO 100 mg DAILY GEORGES Administration Nebivolol 10 mg 01/28/19 10:00 01/30/19 11:14 Bystolic - PO 10 mg DAILY GEORGES Administration Rosuvastatin Calcium 5 mg 01/27/19 22:00 01/29/19 21:25 Crestor - PO 5 mg HS GEORGES Administration pe: Vital Signs Period Temp Pulse Resp BP Sys/Hartman Pulse Ox Last 24 Hr 97.6 F-98.8 F 79-97 17-20 105-129/60-73 92-97 nad no jvd irreg s1s2 no mrg cta bl nl eff aao3 no le edema bl, no c/c abd nt nd pos bs no jaundice diaphoresis CBC, BMP 01/30/19 13:36 01/30/19 13:36 cxr: no chf tele: afib, rate mostly controlled well, occ 120s with exertion, at rest <100 ecg: afib 88, nl qtc, no ischemic changes echo 01/2019: nl lvef, tds rv, mild tr, rvsp 40-50 a/p: 73 m hx htn, hld, here with le edema , sob. afib: -new onset afib -chadsvasc warrants ac, cont eliquis -hr is slightly high with activity. bystolic not ideal for rate control, would dc and start toprol 25 bid instead. acute diastolic chf: -possibly secondary to afib -vol status improved with iv lasix, pt feeling back to baseline. would change to po lasix 40 qd. htn: -cont current meds hld: -cont statin tob use: -smoking cessation discussed pt ok for dc from cardiac pov, needs outpt cardio f/u upon dc
[2019-01-30 16:02] VITALS: BP 102/65; PULSE 84; TEMP 98.2
== END 2019-01-30 17:24 | DRG 291 ==
LOC: FER 10:31 → FM/S 11:29
PROVIDERS: ADMIT Internal Medicine; ATTEND Nurse Practitioner Acute Care
DX: I11.0 Hypertensive heart disease with heart failure (principal); J18.9 Pneumonia, unspecified organism; I50.31 Acute diastolic (congestive) heart failure; E87.1 Hypo-osmolality and hyponatremia; I48.91 Unspecified atrial fibrillation; F17.210 Nicotine dependence, cigarettes, uncomplicated; I10 Essential (primary) hypertension; E78.5 Hyperlipidemia, unspecified; E83.42 Hypomagnesemia
CPT/HCPCS: 36415; 71045-TC-FY; 80048; 80053; 83735; 83880; 84484; 85025; 85610; 85730; 93005; 93306-TC; 97116-GP; 97162-GP; 99284-25

== ENCOUNTER 2020-07-27 20:21 | Inpatient (IN) | payer OTHER, BC ==
[2020-07-27 21:36] LABS: HEMATOCRIT 30.4 % (35.4-49); HEMOGLOBIN 9.9 GM/dl (11.7-16.9); MCH 29.8 pg (25.7-33.7); MCHC 32.6 g/dl (32.0-35.9); MEAN CELL VOLUME 91.3 fl (80-96); MEAN PLT VOLUME 7.6 fl (7.5-11.1); PLATELET COUNT 256 K/MM3 (134-434); RBC 3.34 M/mm3 (4.00-5.60); RDW 15.3 % (11.9-15.9); WHITE BLOOD COUNT 19.5 K/mm3 (4.0-10.8)
[2020-07-27 21:45] LABS: INR 3.4 (0.82-1.09); PROTHROMBIN TIME (PATIENT) 35.1 SEC (10.2-13.0)
[2020-07-27 21:52] LABS: ALBUMIN 3.3 g/dl (3.4-5.0); BILIRUBIN,TOTAL 0.7 mg/dl (0.2-1); CALCIUM 8.3 mg/dl (8.5-10); CREATININE 2.4 mg/dl (0.55-1.3); TOT PROT 5.8 g/dl (6.4-8.2)
[2020-07-27 21:59] LABS: PLATELET ESTIMATE ADEQUATE
[2020-07-27] MEDS ORDERED: CEFTRIAXONE 1,000 MG in DEXTROSE 5%-WATER - 50 ML IVPB ONE (22:25)
[2020-07-27] MEDS ORDERED: cefTRIAXone SODIUM 1 GM VIAL ONE (22:38)
[2020-07-27] MEDS ORDERED: AZITHROMYCIN IVPB 500 MG in DEXTROSE 5%-WATER - 250 ML IVPB ONE (23:22)
[2020-07-27] MEDS ORDERED: FUROSEMIDE 40 MG/4 ML INJECTABLE VIAL IVPUSH ONE (23:23)
[2020-07-27] MEDS ORDERED: AZITHROMYCIN 500 MG VIAL IVPB ONE (23:25)
[2020-07-27] MEDS ORDERED: FUROSEMIDE 40 MG/4 ML INJECTABLE VIAL ONE (23:25)
[2020-07-28 01:16] VITALS: BMI 26.6
[2020-07-28 07:38] LABS: BASO % 0.2 % (0-2.0); EOS % 0.2 % (0-4.5); HEMATOCRIT 29.4 % (35.4-49); HEMOGLOBIN 9.8 GM/dl (11.7-16.9); LYMPH % 5.4 % (8-40); MCH 29.9 pg (25.7-33.7); MCHC 33.2 g/dl (32.0-35.9); MEAN CELL VOLUME 90.2 fl (80-96); MEAN PLT VOLUME 7.6 fl (7.5-11.1); MONO % 7.3 % (3.8-10.2); NEUT % 86.9 % (42.8-82.8); PLATELET COUNT 249 K/MM3 (134-434); RBC 3.26 M/mm3 (4.00-5.60); RDW 15.2 % (11.9-15.9); WHITE BLOOD COUNT 17.5 K/mm3 (4.0-10.8)
[2020-07-28 07:59] LABS: ALBUMIN 3.2 g/dl (3.4-5.0); BILIRUBIN,TOTAL 0.6 mg/dl (0.2-1); CALCIUM 8.4 mg/dl (8.5-10); CREATININE 2.2 mg/dl (0.55-1.3); MAGNESIUM 1.7 mg/dL (1.8-2.4); TOT PROT 5.7 g/dl (6.4-8.2)
[2020-07-28 08:07] LABS: INR 2.36 (0.82-1.09)
[2020-07-28] MEDS ORDERED: metoPROLOL SUCCINATE 25 MG TAB.SR.24H (FP) PO SCH (11:15)
[2020-07-28] MEDS: ALBUTEROL SO4 2.5/IPRATROPIUM 0.5 INH SOL 3 ML VIAL.NEB. NEB SCH ×3 (12:00→19:50)
[2020-07-28] MEDS: APIXABAN 5 MG TABLET PO SCH ×2 (12:08→21:25)
[2020-07-28] MEDS: FUROSEMIDE 40 MG/4 ML INJECTABLE VIAL IVPUSH SCH (14:04)
[2020-07-28] MEDS: methylPREDNISolone NA SUCC 40 MG/1 ML VIAL IVPUSH SCH (16:10)
[2020-07-28] MEDS ORDERED: cefTRIAXone SODIUM 1 GM VIAL ONE (21:12)
[2020-07-28] MEDS ORDERED: DEXTROSE 5%-WATER - 50 ML IVPB ONE (21:12)
[2020-07-28] MEDS: ACETAMINOPHEN 325 MG TABLET (FP) PO PRN (21:23)
[2020-07-28] MEDS: ROSUVASTATIN CA 5 MG TABLET (FP) PO SCH (21:25)
[2020-07-28] MEDS: CEFTRIAXONE 1 GM in DEXTROSE 5%-WATER - 50 ML IVPB SCH (21:27)
[2020-07-28] MEDS: AZITHROMYCIN IVPB 500 MG/250 ML BAG IVPB SCH (22:02)
[2020-07-29] MEDS: methylPREDNISolone NA SUCC 40 MG/1 ML VIAL IVPUSH SCH ×3 (00:59→17:09)
[2020-07-29] MEDS: ACETAMINOPHEN 325 MG TABLET (FP) PO PRN ×3 (02:08→21:50)
[2020-07-29] MEDS: FUROSEMIDE 40 MG/4 ML INJECTABLE VIAL IVPUSH SCH ×2 (05:33→14:03)
[2020-07-29 07:31] LABS: BASO % 5.1 % (0-2.0); HEMATOCRIT 32.1 % (35.4-49); HEMOGLOBIN 10.4 GM/dl (11.7-16.9); LYMPH % 4.3 % (8-40); MCHC 32.3 g/dl (32.0-35.9); MEAN CELL VOLUME 89.8 fl (80-96); MEAN PLT VOLUME 7.6 fl (7.5-11.1); MONO % 0.6 % (3.8-10.2); PLATELET COUNT 302 K/MM3 (134-434); RBC 3.58 M/mm3 (4.00-5.60); WHITE BLOOD COUNT 13.4 K/mm3 (4.0-10.8)
[2020-07-29 08:02] LABS: ALBUMIN 3.2 g/dl (3.4-5.0); BILIRUBIN,TOTAL 0.6 mg/dl (0.2-1); CALCIUM 8.4 mg/dl (8.5-10); CREATININE 1.8 mg/dl (0.55-1.3); MAGNESIUM 1.5 mg/dL (1.8-2.4); TOT PROT 6.1 g/dl (6.4-8.2)
[2020-07-29] MEDS ORDERED: MAGNESIUM SULF 50% (8.12 MEQ/2 ML-1 GM VIAL) IVPB ONE (08:32)
[2020-07-29] MEDS ORDERED: MAGNESIUM SULFATE IN WATER 2 GM/50 ML IVPB IVPB ONE (09:00)
[2020-07-29] MEDS: ALBUTEROL SO4 2.5/IPRATROPIUM 0.5 INH SOL 3 ML VIAL.NEB. NEB SCH ×4 (09:00→21:10)
[2020-07-29] MEDS: metoPROLOL SUCCINATE 25 MG TAB.SR.24H (FP) PO SCH (10:09)
[2020-07-29] MEDS: POTASSIUM CHLORIDE TABS 20 MEQ TABLET.ER (FP) PO SCH ×2 (10:09→14:03)
[2020-07-29] MEDS: APIXABAN 5 MG TABLET PO SCH ×2 (10:09→21:09)
[2020-07-29] MEDS ORDERED: DEXTROSE 5%-WATER - 50 ML IVPB ONE (20:54)
[2020-07-29] MEDS ORDERED: cefTRIAXone SODIUM 1 GM VIAL ONE (20:54)
[2020-07-29] MEDS: ROSUVASTATIN CA 5 MG TABLET (FP) PO SCH (21:09)
[2020-07-29] MEDS: CEFTRIAXONE 1 GM in DEXTROSE 5%-WATER - 50 ML IVPB SCH (21:11)
[2020-07-29] MEDS: AZITHROMYCIN IVPB 500 MG/250 ML BAG IVPB SCH (21:49)
[2020-07-30] MEDS: methylPREDNISolone NA SUCC 40 MG/1 ML VIAL IVPUSH SCH ×3 (02:24→18:39)
[2020-07-30] MEDS: FUROSEMIDE 40 MG/4 ML INJECTABLE VIAL IVPUSH SCH ×2 (06:15→14:30)
[2020-07-30] MEDS: ALBUTEROL SO4 2.5/IPRATROPIUM 0.5 INH SOL 3 ML VIAL.NEB. NEB SCH ×4 (09:41→21:00)
[2020-07-30] MEDS: APIXABAN 5 MG TABLET PO SCH ×2 (09:42→21:01)
[2020-07-30] MEDS: FAMOTIDINE 20 MG TABLET PO SCH (09:42)
[2020-07-30] MEDS: metoPROLOL SUCCINATE 25 MG TAB.SR.24H (FP) PO SCH (09:42)
[2020-07-30 10:01] LABS: HEMOGLOBIN 11.3 GM/dl (11.7-16.9); MCHC 32.3 g/dl (32.0-35.9)
[2020-07-30 10:03] LABS: CALCIUM 8.9 mg/dl (8.5-10); CREATININE 1.7 mg/dl (0.55-1.3)
[2020-07-30 10:05] LABS: BASO % 3.6 % (0-2.0); HEMATOCRIT 34.9 % (35.4-49); LYMPH % 3.6 % (8-40); MEAN CELL VOLUME 89.8 fl (80-96); MEAN PLT VOLUME 7.7 fl (7.5-11.1); MONO % 2.1 % (3.8-10.2); NEUT % 90.7 % (42.8-82.8); PLATELET COUNT 404 K/MM3 (134-434); RBC 3.89 M/mm3 (4.00-5.60); WHITE BLOOD COUNT 17.1 K/mm3 (4.0-10.8)
[2020-07-30 10:34] LABS: INR 2.28 (0.82-1.09); PROTHROMBIN TIME (PATIENT) 24.2 SEC (10.2-13.0)
[2020-07-30] MEDS ORDERED: PIPERACILLIN/TAZOB 3.375 GM 3.375 GM in DEXTROSE 5%-WATER - 50 ML IVPB ONE (10:39)
[2020-07-30] MEDS ORDERED: POTASSIUM CHLORIDE TABS 20 MEQ TABLET.ER (FP) PO ONE (10:46)
[2020-07-30] MEDS ORDERED: PIPERACILLIN/TAZOBACTAM 3.375 GM VIAL IVPB ONE (12:13)
[2020-07-30] MEDS ORDERED: DEXTROSE 5%-WATER - 50 ML IVPB ONE ×2 (12:13→18:40)
[2020-07-30] MEDS ORDERED: VANCOMYCIN 1,000 MG in DEXTROSE 5%-WATER - 250 ML IVPB ONE (13:20)
[2020-07-30] MEDS ORDERED: VANCOMYCIN 1 GM in D5W (PRE-DOCKED) 1,000 MG/250 ML IVPB SCH (13:45)
[2020-07-30] MEDS: PIPERACILLIN/TAZOB 2.25 GM 2.25 GM in DEXTROSE 5%-WATER - 50 ML IVPB SCH (18:39)
[2020-07-30] MEDS ORDERED: PIPERACILLIN/TAZOBACTAM 2.25 GM VIAL IVPB ONE (18:40)
[2020-07-30] MEDS: POTASSIUM CHLORIDE TABS 20 MEQ TABLET.ER (FP) PO SCH (21:01)
[2020-07-30] MEDS: ROSUVASTATIN CA 5 MG TABLET (FP) PO SCH (21:01)
[2020-07-30] MEDS: ACETAMINOPHEN 325 MG TABLET (FP) PO PRN (21:01)
[2020-07-31] MEDS ORDERED: DEXTROSE 5%-WATER - 50 ML IVPB ONE ×3 (00:11→18:12)
[2020-07-31] MEDS ORDERED: PIPERACILLIN/TAZOBACTAM 2.25 GM VIAL IVPB ONE ×3 (00:11→18:12)
[2020-07-31] MEDS: PIPERACILLIN/TAZOB 2.25 GM 2.25 GM in DEXTROSE 5%-WATER - 50 ML IVPB SCH ×3 (01:07→18:21)
[2020-07-31] MEDS: methylPREDNISolone NA SUCC 40 MG/1 ML VIAL IVPUSH SCH ×2 (01:07→21:32)
[2020-07-31] MEDS: FUROSEMIDE 40 MG/4 ML INJECTABLE VIAL IVPUSH SCH ×2 (06:22→15:19)
[2020-07-31] MEDS: ALBUTEROL SO4 2.5/IPRATROPIUM 0.5 INH SOL 3 ML VIAL.NEB. NEB SCH ×4 (08:00→20:58)
[2020-07-31 09:22] LABS: BASO % 0.3 % (0-2.0); HEMATOCRIT 36.4 % (35.4-49); HEMOGLOBIN 11.5 GM/dl (11.7-16.9); LYMPH % 3.1 % (8-40); MCH 28.6 pg (25.7-33.7); MCHC 31.5 g/dl (32.0-35.9); MEAN CELL VOLUME 90.8 fl (80-96); MONO % 1.2 % (3.8-10.2); NEUT % 95.4 % (42.8-82.8); PLATELET COUNT 406 K/MM3 (134-434); RBC 4.01 M/mm3 (4.00-5.60); RDW 15.2 % (11.9-15.9); WHITE BLOOD COUNT 12.4 K/mm3 (4.0-10.8)
[2020-07-31 09:27] LABS: CALCIUM 9.3 mg/dl (8.5-10); CREATININE 2.1 mg/dl (0.55-1.3)
[2020-07-31] MEDS: POTASSIUM CHLORIDE TABS 20 MEQ TABLET.ER (FP) PO SCH (10:57)
[2020-07-31] MEDS: APIXABAN 5 MG TABLET PO SCH ×2 (10:57→21:32)
[2020-07-31] MEDS: metoPROLOL SUCCINATE 25 MG TAB.SR.24H (FP) PO SCH (10:57)
[2020-07-31] MEDS: FAMOTIDINE 20 MG TABLET PO SCH (10:58)
[2020-07-31 11:33] LABS: INR 1.91 (0.83-1.09)
[2020-07-31] MEDS: ROSUVASTATIN CA 5 MG TABLET (FP) PO SCH (21:32)
[2020-08-01] MEDS ORDERED: DEXTROSE 5%-WATER - 50 ML IVPB ONE ×3 (00:13→17:40)
[2020-08-01] MEDS ORDERED: PIPERACILLIN/TAZOBACTAM 2.25 GM VIAL IVPB ONE ×3 (00:13→17:39)
[2020-08-01] MEDS: PIPERACILLIN/TAZOB 2.25 GM 2.25 GM in DEXTROSE 5%-WATER - 50 ML IVPB SCH ×3 (01:26→17:44)
[2020-08-01] MEDS: FUROSEMIDE 40 MG/4 ML INJECTABLE VIAL IVPUSH SCH (06:41)
[2020-08-01 08:15] LABS: BASO % 2.7 % (0-2.0); HEMOGLOBIN 12.1 GM/dl (11.7-16.9); LYMPH % 4.7 % (8-40); MCH 28.6 pg (25.7-33.7); MCHC 30.9 g/dl (32.0-35.9); MEAN CELL VOLUME 92.3 fl (80-96); MEAN PLT VOLUME 7.9 fl (7.5-11.1); MONO % 2.7 % (3.8-10.2); NEUT % 89.9 % (42.8-82.8); PLATELET COUNT 407 K/MM3 (134-434); RBC 4.23 M/mm3 (4.00-5.60); RDW 15.1 % (11.9-15.9); WHITE BLOOD COUNT 10.2 K/mm3 (4.0-10.8)
[2020-08-01 08:19] LABS: CALCIUM 9.1 mg/dl (8.5-10)
[2020-08-01 08:29] LABS: INR 1.89 (0.82-1.09); PROTHROMBIN TIME (PATIENT) 20.3 SEC (10.2-13.0)
[2020-08-01] MEDS: metoPROLOL SUCCINATE 25 MG TAB.SR.24H (FP) PO SCH (08:59)
[2020-08-01] MEDS: methylPREDNISolone NA SUCC 40 MG/1 ML VIAL IVPUSH SCH ×2 (09:00→21:32)
[2020-08-01] MEDS: ACETAMINOPHEN 325 MG TABLET (FP) PO PRN (09:01)
[2020-08-01] MEDS: APIXABAN 5 MG TABLET PO SCH ×2 (09:01→21:32)
[2020-08-01] MEDS: FAMOTIDINE 20 MG TABLET PO SCH (09:01)
[2020-08-01] MEDS: POTASSIUM CHLORIDE TABS 20 MEQ TABLET.ER (FP) PO SCH (09:01)
[2020-08-01] MEDS: ALBUTEROL SO4 2.5/IPRATROPIUM 0.5 INH SOL 3 ML VIAL.NEB. NEB SCH ×4 (09:03→21:32)
[2020-08-01] MEDS: ROSUVASTATIN CA 5 MG TABLET (FP) PO SCH (21:32)
[2020-08-02] MEDS ORDERED: PIPERACILLIN/TAZOBACTAM 2.25 GM VIAL IVPB ONE ×3 (01:20→16:42)
[2020-08-02] MEDS ORDERED: DEXTROSE 5%-WATER - 50 ML IVPB ONE ×3 (01:21→16:42)
[2020-08-02] MEDS: PIPERACILLIN/TAZOB 2.25 GM 2.25 GM in DEXTROSE 5%-WATER - 50 ML IVPB SCH ×3 (01:33→17:15)
[2020-08-02] MEDS: metoPROLOL SUCCINATE 25 MG TAB.SR.24H (FP) PO SCH (10:05)
[2020-08-02] MEDS: POTASSIUM CHLORIDE TABS 20 MEQ TABLET.ER (FP) PO SCH (10:05)
[2020-08-02] MEDS: APIXABAN 5 MG TABLET PO SCH ×2 (10:05→21:22)
[2020-08-02] MEDS: FUROSEMIDE 40 MG TABLET (FP) PO SCH (10:06)
[2020-08-02] MEDS: FAMOTIDINE 20 MG TABLET PO SCH ×2 (10:06→10:15)
[2020-08-02] MEDS: ALBUTEROL SO4 2.5/IPRATROPIUM 0.5 INH SOL 3 ML VIAL.NEB. NEB SCH ×4 (10:06→21:21)
[2020-08-02] MEDS: methylPREDNISolone NA SUCC 40 MG/1 ML VIAL IVPUSH SCH (10:07)
[2020-08-02] MEDS: ROSUVASTATIN CA 5 MG TABLET (FP) PO SCH (21:22)
[2020-08-03] MEDS: PIPERACILLIN/TAZOB 2.25 GM 2.25 GM in DEXTROSE 5%-WATER - 50 ML IVPB SCH ×2 (02:00→09:17)
[2020-08-03 02:10] VITALS: TEMP 98.3
[2020-08-03] MEDS ORDERED: PT OWN MED DRAWER 7, Y5N ONE (03:29)
[2020-08-03 07:59] LABS: BASO % 0.8 % (0-2.0); HEMATOCRIT 36.9 % (35.4-49); HEMOGLOBIN 11.9 GM/dl (11.7-16.9); LYMPH % 7.3 % (8-40); MCH 28.5 pg (25.7-33.7); MCHC 32.2 g/dl (32.0-35.9); MEAN CELL VOLUME 88.5 fl (80-96); MEAN PLT VOLUME 7.4 fl (7.5-11.1); MONO % 6.5 % (3.8-10.2); NEUT % 85.4 % (42.8-82.8); PLATELET COUNT 411 10^3/uL (134-434); RBC 4.17 M/mm3 (4.00-5.60); RDW 15.1 % (11.9-15.9); WHITE BLOOD COUNT 13.9 K/mm3 (4.0-10.8)
[2020-08-03 08:04] LABS: ALBUMIN 2.9 g/dl (3.4-5.0); BILIRUBIN,TOTAL 0.8 mg/dl (0.2-1); CREATININE 1.6 mg/dl (0.55-1.3); MAGNESIUM 1.9 mg/dL (1.8-2.4); TOT PROT 5.4 g/dl (6.4-8.2)
[2020-08-03] MEDS ORDERED: DEXTROSE 5%-WATER - 50 ML IVPB ONE (09:00)
[2020-08-03] MEDS ORDERED: PIPERACILLIN/TAZOBACTAM 2.25 GM VIAL IVPB ONE (09:00)
[2020-08-03] MEDS: POTASSIUM CHLORIDE TABS 20 MEQ TABLET.ER (FP) PO SCH (09:18)
[2020-08-03] MEDS: APIXABAN 5 MG TABLET PO SCH (09:18)
[2020-08-03] MEDS: metoPROLOL SUCCINATE 25 MG TAB.SR.24H (FP) PO SCH (09:18)
[2020-08-03] MEDS: ALBUTEROL SO4 2.5/IPRATROPIUM 0.5 INH SOL 3 ML VIAL.NEB. NEB SCH ×2 (09:19→13:44)
[2020-08-03] MEDS: FAMOTIDINE 20 MG TABLET PO SCH (09:19)
[2020-08-03] MEDS: FUROSEMIDE 40 MG TABLET (FP) PO SCH (09:20)
[2020-08-03 09:31] VITALS: BP 123/76; PULSE 96
[2020-08-03] MEDS ORDERED: methylPREDNISolone NA SUCC 40 MG/1 ML VIAL IVPUSH SCH (10:00)
== END 2020-08-03 15:50 | disposition home or self-care (01) | DRG 291 ==
LOC: FER 20:21 → FM/S 23:26 → UNDOADMIN 07-28 00:18 → FM/S 07-28 00:18
PROVIDERS: ADMIT Internal Medicine; ATTEND Nurse Practitioner Acute Care
DX: I11.0 Hypertensive heart disease with heart failure (principal); J18.9 Pneumonia, unspecified organism; N17.9 Acute kidney failure, unspecified; I48.20 Chronic atrial fibrillation, unspecified; J44.1 Chronic obstructive pulmonary disease with (acute) exacerbation; R78.81 Bacteremia; I50.33 Acute on chronic diastolic (congestive) heart failure; Z79.01 Long term (current) use of anticoagulants; R91.1 Solitary pulmonary nodule; F17.210 Nicotine dependence, cigarettes, uncomplicated; E78.5 Hyperlipidemia, unspecified
CPT/HCPCS: 36415; 71045-TC-FY; 71250-TC; 80048; 80053; 80307; 81003; 81015; 82550; 83036; 83735; 83880; 84484; 85025; 85610; 87040; 87070; 87086; 87186; 87205; 93005; 93306-TC; 93970-TC; 94640; 94761; 97116-GP; 97163-GP; 99285-25; C9803; G0480; U0003; U0005

== ENCOUNTER 2020-10-19 04:35 | Inpatient (IN) | payer OTHER, BC ==
[2020-10-17 15:20] VITALS: BMI 23.3
[2020-10-19] MEDS: ROSUVASTATIN CA 5 MG TABLET (FP) PO SCH (21:36)
[2020-10-19] MEDS: ALBUTEROL SO4 2.5/IPRATROPIUM 0.5 INH SOL 3 ML VIAL.NEB. NEB PRN (22:10)
[2020-10-20] MEDS ORDERED: AZITHROMYCIN IVPB 500 MG/250 ML BAG IVPB ONE (02:44)
[2020-10-20] MEDS ORDERED: CEFTRIAXONE 1 GM in DEXTROSE 5%-WATER - 50 ML IVPB ONE (02:44)
[2020-10-20] MEDS: ALBUTEROL SO4 2.5/IPRATROPIUM 0.5 INH SOL 3 ML VIAL.NEB. NEB PRN (04:18)
[2020-10-20] MEDS ORDERED: DEXTROSE 5%-WATER - 50 ML IVPB ONE (05:12)
[2020-10-20] MEDS ORDERED: cefTRIAXone SODIUM 1 GM VIAL ONE (05:12)
[2020-10-20 09:07] LABS: BASO % 0.4 % (0-2.0); HEMATOCRIT 35.1 % (35.4-49); HEMOGLOBIN 11.7 GM/dL (11.7-16.9); LYMPH % 4.8 % (8-40); MCH 32.2 pg (25.7-33.7); MCHC 33.3 g/dl (32.0-35.9); MEAN CELL VOLUME 96.9 fl (80-96); MEAN PLT VOLUME 7.4 fl (7.5-11.1); MONO % 7.6 % (3.8-10.2); NEUT % 87.2 % (42.8-82.8); PLATELET COUNT 242 10^3/uL (134-434); RBC 3.62 M/mm3 (4.00-5.60); RDW 24.9 % (11.9-15.9); WHITE BLOOD COUNT 10.9 K/mm3 (4.0-10.0)
[2020-10-20 09:18] LABS: CHLORIDE 102 mmol/L (98-107); SODIUM 139 mmol/L (136-145)
[2020-10-20 09:29] LABS: CALCIUM 8.6 mg/dL (8.5-10.1)
[2020-10-20 09:30] LABS: ANION GAP 10 MMOL/L (8-16); BLOOD UREA NITROGEN 23.5 mg/dL (7-18); CO2 26 mmol/L (21-32); GLUCOSE,RANDOM 118 mg/dL (74-106)
[2020-10-20 09:33] LABS: CREATININE 1.1 mg/dL (0.55-1.3); SGOT/AST 16 U/L (15-37); SGPT/ALT 11 U/L (13-61)
[2020-10-20 09:35] LABS: BILIRUBIN,TOTAL 0.6 mg/dL (0.2-1); TOT PROT 5.4 g/dl (6.4-8.2)
[2020-10-20 09:36] LABS: ALK PHOS 67 U/L (45-117)
[2020-10-20 19:45] LABS: EPI CELLS 11 /uL (0-25.1); HYALINE CASTS 1 /uL (0-3.1); URINE APPEARANCE CLEAR; URINE BACTERIA 23 /uL (0-1359); URINE BILIRUBIN NEGATIVE (NEGATIVE); URINE COLOR YELLOW; URINE GLUCOSE (UA) NEGATIVE (NEGATIVE); URINE KETONE NEGATIVE (NEGATIVE); URINE LEUK ESTERASE TRACE (NEGATIVE); URINE NITRITE NEGATIVE (NEGATIVE); URINE PROTEIN 1+ (NEGATIVE); URINE RBC 341 /uL (0-23.9); URINE UROBILINOGEN 0.2 mg/dL (0.2-1.0); URINE WBC 46 /uL (0-25.8)
[2020-10-20] MEDS ORDERED: POTASSIUM CHLORIDE TABS 20 MEQ TABLET.ER (FP) PO ONE (20:39)
[2020-10-20] MEDS: ACETAMINOPHEN 325 MG TABLET (FP) PO PRN (22:14)
[2020-10-20] MEDS: ROSUVASTATIN CA 5 MG TABLET (FP) PO SCH (22:14)
[2020-10-21 09:20] LABS: BASO % 0.3 % (0-2.0); EOS % 0.1 % (0-4.5); HEMATOCRIT 35.5 % (35.4-49); HEMOGLOBIN 11.8 GM/dL (11.7-16.9); LYMPH % 6.1 % (8-40); MCH 32.3 pg (25.7-33.7); MCHC 33.3 g/dl (32.0-35.9); MEAN PLT VOLUME 7.7 fl (7.5-11.1); NEUT % 83.5 % (42.8-82.8); PLATELET COUNT 221 10^3/uL (134-434); RBC 3.66 M/mm3 (4.00-5.60); RDW 24.7 % (11.9-15.9)
[2020-10-21] MEDS ORDERED: AZITHROMYCIN IVPB 500 MG/250 ML BAG IVPB SCH (10:00)
[2020-10-21 10:47] LABS: ANISOCYTOSIS 1+; MACROCYTOSIS 0; OVALOCYTE 1+; PLATELET ESTIMATE NORMAL
[2020-10-21 11:24] LABS: CHLORIDE 101 mmol/L (98-107); SODIUM 139 mmol/L (136-145)
[2020-10-21 11:26] LABS: CALCIUM 8.9 mg/dL (8.5-10.1)
[2020-10-21 11:27] LABS: ANION GAP 11 MMOL/L (8-16); BLOOD UREA NITROGEN 21.8 mg/dL (7-18); CO2 27 mmol/L (21-32); GLUCOSE,RANDOM 107 mg/dL (74-106)
[2020-10-21] MEDS ORDERED: cefTRIAXone SODIUM 1 GM VIAL ONE (11:29)
[2020-10-21] MEDS ORDERED: DEXTROSE 5%-WATER - 50 ML IVPB ONE (11:29)
[2020-10-21 11:30] LABS: CREATININE 1.1 mg/dL (0.55-1.3); SGOT/AST 19 U/L (15-37); SGPT/ALT 11 U/L (13-61)
[2020-10-21 11:31] LABS: BILIRUBIN,TOTAL 0.8 mg/dL (0.2-1); TOT PROT 5.6 g/dl (6.4-8.2)
[2020-10-21 11:32] LABS: ALK PHOS 71 U/L (45-117)
[2020-10-21] MEDS: CEFTRIAXONE 1 GM in DEXTROSE 5%-WATER - 50 ML IVPB SCH (12:04)
[2020-10-21] MEDS: ROSUVASTATIN CA 5 MG TABLET (FP) PO SCH (21:01)
[2020-10-22] MEDS ORDERED: DEXTROSE 5%-WATER - 50 ML IVPB ONE (10:56)
[2020-10-22] MEDS ORDERED: cefTRIAXone SODIUM 1 GM VIAL ONE (10:56)
[2020-10-22] MEDS: CEFTRIAXONE 1 GM in DEXTROSE 5%-WATER - 50 ML IVPB SCH (10:59)
[2020-10-22] MEDS: ROSUVASTATIN CA 5 MG TABLET (FP) PO SCH (21:05)
[2020-10-23] MEDS: ACETAMINOPHEN 325 MG TABLET (FP) PO PRN (06:06)
[2020-10-23] MEDS ORDERED: DEXTROSE 5%-WATER - 50 ML IVPB ONE (09:15)
[2020-10-23] MEDS ORDERED: cefTRIAXone SODIUM 1 GM VIAL ONE (09:15)
[2020-10-23] MEDS: CEFTRIAXONE 1 GM in DEXTROSE 5%-WATER - 50 ML IVPB SCH (09:20)
[2020-10-23] MEDS ORDERED: ALBUTEROL SO4 2.5/IPRATROPIUM 0.5 INH SOL 3 ML VIAL.NEB. NEB PRN (14:23)
[2020-10-23] MEDS ORDERED: ALBUTEROL SO4 HFA INHALER IH PRN (15:07)
[2020-10-23] MEDS: ROSUVASTATIN CA 5 MG TABLET (FP) PO SCH (21:10)
[2020-10-23] MEDS: MELATONIN 5 MG TABLETS PO PRN (21:10)
[2020-10-24] MEDS: ACETAMINOPHEN 325 MG TABLET (FP) PO PRN (05:19)
[2020-10-24] MEDS ORDERED: cefTRIAXone SODIUM 1 GM VIAL ONE (09:17)
[2020-10-24] MEDS ORDERED: DEXTROSE 5%-WATER - 50 ML IVPB ONE (09:17)
[2020-10-24] MEDS: CEFTRIAXONE 1 GM in DEXTROSE 5%-WATER - 50 ML IVPB SCH (09:31)
[2020-10-24 10:06] LABS: BASO % 1.1 % (0-2.0); EOS % 0.8 % (0-4.5); HEMATOCRIT 35.3 % (35.4-49); HEMOGLOBIN 11.8 GM/dL (11.7-16.9); LYMPH % 10.4 % (8-40); MCH 32.3 pg (25.7-33.7); MCHC 33.5 g/dl (32.0-35.9); MEAN CELL VOLUME 96.3 fl (80-96); MEAN PLT VOLUME 7.6 fl (7.5-11.1); NEUT % 80.7 % (42.8-82.8); PLATELET COUNT 322 10^3/uL (134-434); RBC 3.67 M/mm3 (4.00-5.60); RDW 23.2 % (11.9-15.9); WHITE BLOOD COUNT 6.5 K/mm3 (4.0-10.0)
[2020-10-24 10:20] LABS: CALCIUM 8.8 mg/dL (8.5-10.1)
[2020-10-24 10:21] LABS: BLOOD UREA NITROGEN 23.8 mg/dL (7-18)
[2020-10-24 10:24] LABS: CREATININE 1.1 mg/dL (0.55-1.3)
[2020-10-24 13:37] LABS: ANISOCYTOSIS 2+; MACROCYTOSIS 0; OVALOCYTE 1+; PLATELET ESTIMATE NORMAL
[2020-10-24] MEDS: MELATONIN 5 MG TABLETS PO PRN (21:38)
[2020-10-24] MEDS: ROSUVASTATIN CA 5 MG TABLET (FP) PO SCH (21:38)
[2020-10-25] MEDS: ACETAMINOPHEN 325 MG TABLET (FP) PO PRN (01:53)
[2020-10-25 08:48] LABS: BASO % 1.2 % (0-2.0); EOS % 1.6 % (0-4.5); HEMATOCRIT 36.5 % (35.4-49); LYMPH % 12.7 % (8-40); MCH 32.1 pg (25.7-33.7); MEAN CELL VOLUME 97.3 fl (80-96); MEAN PLT VOLUME 7.6 fl (7.5-11.1); MONO % 11.3 % (3.8-10.2); NEUT % 73.2 % (42.8-82.8); PLATELET COUNT 343 10^3/uL (134-434); RBC 3.75 M/mm3 (4.00-5.60); RDW 23.4 % (11.9-15.9); WHITE BLOOD COUNT 7.6 K/mm3 (4.0-10.0)
[2020-10-25 09:17] LABS: BLOOD UREA NITROGEN 21.6 mg/dL (7-18)
[2020-10-25] MEDS ORDERED: cefTRIAXone SODIUM 1 GM VIAL ONE (09:31)
[2020-10-25] MEDS ORDERED: DEXTROSE 5%-WATER - 50 ML IVPB ONE (09:31)
[2020-10-25] MEDS: CEFTRIAXONE 1 GM in DEXTROSE 5%-WATER - 50 ML IVPB SCH (10:24)
[2020-10-25] MEDS: APIXABAN 5 MG TABLET PO SCH ×2 (12:06→22:31)
[2020-10-25] MEDS: ROSUVASTATIN CA 5 MG TABLET (FP) PO SCH (22:31)
[2020-10-26] MEDS: ACETAMINOPHEN 325 MG TABLET (FP) PO PRN (01:15)
[2020-10-26] MEDS: MELATONIN 5 MG TABLETS PO PRN (01:15)
[2020-10-26] MEDS ORDERED: cefTRIAXone SODIUM 1 GM VIAL ONE (10:51)
[2020-10-26] MEDS ORDERED: DEXTROSE 5%-WATER - 50 ML IVPB ONE (10:51)
[2020-10-26] MEDS: CEFTRIAXONE 1 GM in DEXTROSE 5%-WATER - 50 ML IVPB SCH (11:03)
[2020-10-26] MEDS: APIXABAN 5 MG TABLET PO SCH ×2 (11:03→21:37)
[2020-10-26] MEDS: ROSUVASTATIN CA 5 MG TABLET (FP) PO SCH (21:37)
[2020-10-27] MEDS: ACETAMINOPHEN 325 MG TABLET (FP) PO PRN ×2 (01:25→23:55)
[2020-10-27] MEDS: MELATONIN 5 MG TABLETS PO PRN (01:25)
[2020-10-27] MEDS ORDERED: PT OWN MED DRAWER 7, Y5N ONE (11:19)
[2020-10-27] MEDS ORDERED: DEXTROSE 5%-WATER - 50 ML IVPB ONE (11:19)
[2020-10-27] MEDS ORDERED: cefTRIAXone SODIUM 1 GM VIAL ONE (11:19)
[2020-10-27] MEDS: APIXABAN 5 MG TABLET PO SCH ×2 (11:40→21:20)
[2020-10-27] MEDS: CEFTRIAXONE 1 GM in DEXTROSE 5%-WATER - 50 ML IVPB SCH (11:41)
[2020-10-27] MEDS: POLYETHYLENE GLYCOL (HEALTHYLAX) 3350 17 GM PACKET PO SCH (14:06)
[2020-10-27] MEDS: ROSUVASTATIN CA 5 MG TABLET (FP) PO SCH (21:20)
[2020-10-28] MEDS: MELATONIN 5 MG TABLETS PO PRN (01:43)
[2020-10-28] MEDS ORDERED: cefTRIAXone SODIUM 1 GM VIAL ONE (09:48)
[2020-10-28] MEDS ORDERED: DEXTROSE 5%-WATER - 50 ML IVPB ONE (09:48)
[2020-10-28] MEDS: POLYETHYLENE GLYCOL (HEALTHYLAX) 3350 17 GM PACKET PO SCH (09:57)
[2020-10-28] MEDS: APIXABAN 5 MG TABLET PO SCH (09:59)
[2020-10-28 15:57] VITALS: BP 115/85; PULSE 86; TEMP 97.6
== END 2020-10-28 16:13 | disposition home health service (06) | DRG 199 ==
LOC: JASUSAT 04:35 → JRADIR 04:35 → J5S 13:14 → JASUSAT 13:15
PROVIDERS: ADMIT Family Medicine; ATTEND Family Medicine
PROC: 0BBK3ZX Excision of Right Lung, Percutaneous Approach, Diagnostic (ICD-10-PCS; principal; 2020-10-19)
PROC: 0W9930Z Drainage of Right Pleural Cavity with Drainage Device, Percutaneous Approach (ICD-10-PCS; 2020-10-19)
DX: J95.811 Postprocedural pneumothorax (principal); J18.9 Pneumonia, unspecified organism; C34.11 Malignant neoplasm of upper lobe, right bronchus or lung; I50.32 Chronic diastolic (congestive) heart failure; I11.0 Hypertensive heart disease with heart failure; I48.91 Unspecified atrial fibrillation; E78.5 Hyperlipidemia, unspecified; R10.9 Unspecified abdominal pain; R91.1 Solitary pulmonary nodule; M54.5 Low back pain; D64.9 Anemia, unspecified; F17.210 Nicotine dependence, cigarettes, uncomplicated
CPT/HCPCS: 32408; 32557; 36415; 71045-TC-FY; 71046-TC-FY; 76700-TC; 80048; 80053; 81003; 82550; 82553; 84484; 85025; 85610; 87040; 87086; 87899; 93005; 93010; 94640; 97116-GP; 97162-GP; C9803; U0003; U0005

== ENCOUNTER 2022-07-04 16:44 | Inpatient (IN) | payer OTHER, BC ==
[2022-07-04] MEDS ORDERED: ACETAMINOPHEN 1000 MG/100 ML BAG IVPB ONE (17:35)
[2022-07-04] MEDS ORDERED: ACETAMINOPHEN INJECTION 100 ML IVPB ONE (18:01)
[2022-07-04 18:10] LABS: HEMATOCRIT 34.6 % (35.4-49); MCH 26.6 pg (25.7-33.7); MCHC 31.6 g/dl (32.0-35.9); MEAN CELL VOLUME 84.1 fl (80-96); MEAN PLT VOLUME 9.4 fl (7.5-11.1); PLATELET COUNT 276.2 10^3/uL (134-434); RBC 4.12 10^6/uL (4.00-5.60); RDW 20.3 % (11.9-15.9); WHITE BLOOD COUNT 13.6 10^3/uL (4.0-10.8)
[2022-07-04 18:26] LABS: ALBUMIN 2.4 g/dl (3.4-5.0); CALCIUM 8.5 mg/dl (8.5-10); CREATININE 0.9 mg/dl (0.55-1.3); TOT PROT 5.9 g/dl (6.4-8.2)
[2022-07-04 18:28] LABS: POTASSIUM 5.2 mmol/L (3.5-5.1)
[2022-07-04] MEDS ORDERED: PIPERACILLIN/TAZOB 4.5 GM 4.5 GM in DEXTROSE 5%-WATER 100 ML IVPB ONE (21:14)
[2022-07-04] MEDS ORDERED: PIPERACILLIN/TAZOBACTAM 4.5 GM VIAL IVPB ONE (21:18)
[2022-07-05] MEDS ORDERED: PIPERACILLIN/TAZOB 3.375 GM 3.375 GM in DEXTROSE 5%-WATER - 50 ML IVPB SCH (03:00)
[2022-07-05 05:02] VITALS: BMI 10.4
[2022-07-05] MEDS: PIPERACILLIN/TAZOB 3.375 GM 3.375 GM in DEXTROSE 5%-WATER - 50 ML IVPB SCH ×4 (05:28→21:02)
[2022-07-05] MEDS: guaiFENesin/D-METHORPHAN HB 10 ML UNIT-DOSE CUPS PO SCH ×3 (06:22→21:01)
[2022-07-05] MEDS ORDERED: MIDODRINE HCL 5 MG TABLET PO SCH (10:00)
[2022-07-05] MEDS: predniSONE 10 MG TABLET (UD) PO SCH (10:59)
[2022-07-05] MEDS: DIGOXIN 0.125 MG TABLET PO SCH ×2 (10:59→11:46)
[2022-07-05] MEDS: FUROSEMIDE 20 MG TABLET (FP) PO SCH ×2 (10:59→11:46)
[2022-07-05] MEDS: APIXABAN 5 MG TABLET PO SCH ×2 (10:59→21:01)
[2022-07-05] MEDS: SENNOSIDES 8.6MG TABLET (FP) PO SCH ×2 (10:59→11:46)
[2022-07-05] MEDS: MIDODRINE HCL 2.5 MG TABLET PO SCH ×3 (11:00→18:43)
[2022-07-05] MEDS: FLUTICASONE/UMECLIDIN/VILANTER(100-62.5-25 TRELEGY ELLIPTA) INAHLER IH SCH (11:43)
[2022-07-05 19:05] LABS: HEMATOCRIT 33.9 % (35.4-49); HEMOGLOBIN 10.6 G/dL (11.7-16.9); MCH 26.3 pg (25.7-33.7); MCHC 31.2 g/dl (32.0-35.9); MEAN CELL VOLUME 84.1 fl (80-96); MEAN PLT VOLUME 10.5 fl (7.5-11.1); RBC 4.03 10^6/uL (4.00-5.60); RDW 20.8 % (11.9-15.9); WHITE BLOOD COUNT 11.6 10^3/uL (4.0-10.8)
[2022-07-05 19:11] LABS: ALBUMIN 2.3 g/dl (3.4-5.0); BILIRUBIN,TOTAL 0.4 mg/dl (0.2-1); CALCIUM 8.3 mg/dl (8.5-10); CREATININE 0.9 mg/dl (0.55-1.3); POTASSIUM 4.1 mmol/L (3.5-5.1); TOT PROT 6.2 g/dl (6.4-8.2)
[2022-07-05 19:54] LABS: PLATELET ESTIMATE ADEQUATE
[2022-07-05] MEDS: ROSUVASTATIN CA 5 MG TABLET PO SCH (21:01)
[2022-07-05] MEDS: MELATONIN 5 MG TABLETS PO PRN (22:07)
[2022-07-06] MEDS: PIPERACILLIN/TAZOB 3.375 GM 3.375 GM in DEXTROSE 5%-WATER - 50 ML IVPB SCH ×3 (02:10→18:25)
[2022-07-06] MEDS: guaiFENesin/D-METHORPHAN HB 10 ML UNIT-DOSE CUPS PO SCH ×3 (06:07→21:22)
[2022-07-06] MEDS: SENNOSIDES 8.6MG TABLET (FP) PO SCH ×3 (06:08→21:22)
[2022-07-06 08:39] LABS: ALBUMIN 2.3 g/dl (3.4-5.0); BILIRUBIN,TOTAL 0.5 mg/dl (0.2-1); CALCIUM 8.6 mg/dl (8.5-10); CREATININE 0.9 mg/dl (0.55-1.3); PHOSPHOROUS 3.5 mg/dl (2.5-4.9)
[2022-07-06] MEDS: DIGOXIN 0.125 MG TABLET PO SCH (09:51)
[2022-07-06] MEDS: APIXABAN 5 MG TABLET PO SCH ×2 (09:52→21:22)
[2022-07-06] MEDS: FUROSEMIDE 20 MG TABLET (FP) PO SCH (09:52)
[2022-07-06] MEDS: MIDODRINE HCL 2.5 MG TABLET PO SCH ×2 (09:55→18:25)
[2022-07-06] MEDS: FLUTICASONE/UMECLIDIN/VILANTER(100-62.5-25 TRELEGY ELLIPTA) INAHLER IH SCH (10:00)
[2022-07-06 10:39] LABS: BASO % 0.4 % (0-2.0); EOS % 1.9 % (0-4.5); HEMATOCRIT 31.7 % (35.4-49); LYMPH % 5.6 % (8-40); MCH 25.2 pg (25.7-33.7); MCHC 31.7 g/dl (32.0-35.9); MEAN CELL VOLUME 79.6 fl (80-96); MONO % 11.7 % (3.8-10.2); NEUT % 80.4 % (42.8-82.8); PLATELET COUNT 262 10^3/uL (134-434); RBC 3.98 M/mm3 (4.00-5.60); WHITE BLOOD COUNT 9.2 K/mm3 (4.0-10.0)
[2022-07-06] MEDS: ROSUVASTATIN CA 5 MG TABLET PO SCH (21:22)
[2022-07-06] MEDS: MELATONIN 5 MG TABLETS PO PRN (21:22)
[2022-07-07] MEDS: ACETAMINOPHEN 325 MG TABLET (FP) PO PRN ×2 (00:03→23:01)
[2022-07-07] MEDS: PIPERACILLIN/TAZOB 3.375 GM 3.375 GM in DEXTROSE 5%-WATER - 50 ML IVPB SCH ×4 (01:39→18:27)
[2022-07-07] MEDS: guaiFENesin/D-METHORPHAN HB 10 ML UNIT-DOSE CUPS PO SCH ×3 (06:21→21:48)
[2022-07-07] MEDS: predniSONE 10 MG TABLET (UD) PO SCH ×2 (08:29→10:04)
[2022-07-07] MEDS: DIGOXIN 0.125 MG TABLET PO SCH (10:04)
[2022-07-07] MEDS: FUROSEMIDE 20 MG TABLET (FP) PO SCH (10:04)
[2022-07-07] MEDS: MIDODRINE HCL 2.5 MG TABLET PO SCH ×2 (10:04→18:27)
[2022-07-07] MEDS: APIXABAN 5 MG TABLET PO SCH ×2 (10:04→21:47)
[2022-07-07] MEDS: SENNOSIDES 8.6MG TABLET (FP) PO SCH ×2 (10:04→21:47)
[2022-07-07] MEDS: FLUTICASONE/UMECLIDIN/VILANTER(100-62.5-25 TRELEGY ELLIPTA) INAHLER IH SCH (10:06)
[2022-07-07] MEDS: ROSUVASTATIN CA 5 MG TABLET PO SCH (21:47)
[2022-07-07] MEDS: MELATONIN 5 MG TABLETS PO PRN (23:01)
[2022-07-08] MEDS: PIPERACILLIN/TAZOB 3.375 GM 3.375 GM in DEXTROSE 5%-WATER - 50 ML IVPB SCH ×3 (02:05→17:25)
[2022-07-08] MEDS: guaiFENesin/D-METHORPHAN HB 10 ML UNIT-DOSE CUPS PO SCH ×3 (08:08→23:43)
[2022-07-08 08:49] LABS: HEMATOCRIT 32.8 % (35.4-49); HEMOGLOBIN 10.1 G/dL (11.7-16.9); MCH 25.6 pg (25.7-33.7); MCHC 30.6 g/dl (32.0-35.9); MEAN CELL VOLUME 83.7 fl (80-96); MEAN PLT VOLUME 10.7 fl (7.5-11.1); PLATELET COUNT 193.2 10^3/uL (134-434); RBC 3.92 10^6/uL (4.00-5.60); RDW 20.9 % (11.9-15.9); WHITE BLOOD COUNT 8.5 10^3/uL (4.0-10.8)
[2022-07-08 08:52] LABS: ALBUMIN 2.2 g/dl (3.4-5.0); BILIRUBIN,TOTAL 0.5 mg/dl (0.2-1); CALCIUM 8.6 mg/dl (8.5-10); POTASSIUM 3.6 mmol/L (3.5-5.1); TOT PROT 5.8 g/dl (6.4-8.2)
[2022-07-08] MEDS: DIGOXIN 0.125 MG TABLET PO SCH (09:43)
[2022-07-08] MEDS: predniSONE 10 MG TABLET (UD) PO SCH (09:43)
[2022-07-08] MEDS: SENNOSIDES 8.6MG TABLET (FP) PO SCH ×3 (09:43→23:44)
[2022-07-08] MEDS: MIDODRINE HCL 2.5 MG TABLET PO SCH ×2 (09:43→17:25)
[2022-07-08] MEDS: FUROSEMIDE 20 MG TABLET (FP) PO SCH (09:44)
[2022-07-08] MEDS: APIXABAN 5 MG TABLET PO SCH ×2 (09:44→21:51)
[2022-07-08] MEDS: ACETAMINOPHEN 325 MG TABLET (FP) PO PRN ×3 (09:44→21:51)
[2022-07-08] MEDS: FLUTICASONE/UMECLIDIN/VILANTER(100-62.5-25 TRELEGY ELLIPTA) INAHLER IH SCH (09:46)
[2022-07-08 10:58] LABS: PLATELET ESTIMATE INCREASED
[2022-07-08] MEDS: ROSUVASTATIN CA 5 MG TABLET PO SCH (21:51)
[2022-07-08] MEDS: MELATONIN 5 MG TABLETS PO PRN (21:53)
[2022-07-09] MEDS: PIPERACILLIN/TAZOB 3.375 GM 3.375 GM in DEXTROSE 5%-WATER - 50 ML IVPB SCH ×3 (03:00→17:32)
[2022-07-09] MEDS: guaiFENesin/D-METHORPHAN HB 10 ML UNIT-DOSE CUPS PO SCH ×3 (06:22→21:35)
[2022-07-09 08:27] LABS: HEMATOCRIT 33.7 % (35.4-49); HEMOGLOBIN 10.5 G/dL (11.7-16.9); MCH 26.2 pg (25.7-33.7); MCHC 31.1 g/dl (32.0-35.9); MEAN CELL VOLUME 84.3 fl (80-96); PLATELET COUNT 285.9 10^3/uL (134-434); RDW 20.8 % (11.9-15.9); WHITE BLOOD COUNT 11.7 10^3/uL (4.0-10.8)
[2022-07-09] MEDS: SENNOSIDES 8.6MG TABLET (FP) PO SCH ×3 (09:04→21:34)
[2022-07-09 09:07] LABS: CALCIUM 8.7 mg/dl (8.5-10); CREATININE 0.9 mg/dl (0.55-1.3)
[2022-07-09] MEDS: FUROSEMIDE 20 MG TABLET (FP) PO SCH (09:26)
[2022-07-09] MEDS: APIXABAN 5 MG TABLET PO SCH ×2 (09:26→21:32)
[2022-07-09] MEDS: MIDODRINE HCL 2.5 MG TABLET PO SCH ×2 (09:26→17:32)
[2022-07-09] MEDS: DIGOXIN 0.125 MG TABLET PO SCH (09:26)
[2022-07-09] MEDS: predniSONE 10 MG TABLET (UD) PO SCH (09:26)
[2022-07-09] MEDS: FLUTICASONE/UMECLIDIN/VILANTER(100-62.5-25 TRELEGY ELLIPTA) INAHLER IH SCH (09:27)
[2022-07-09] MEDS: ROSUVASTATIN CA 5 MG TABLET PO SCH (21:32)
[2022-07-09] MEDS: MELATONIN 5 MG TABLETS PO PRN (22:51)
[2022-07-09] MEDS: ACETAMINOPHEN 325 MG TABLET (FP) PO PRN (22:51)
[2022-07-10] MEDS: PIPERACILLIN/TAZOB 3.375 GM 3.375 GM in DEXTROSE 5%-WATER - 50 ML IVPB SCH ×3 (01:45→19:16)
[2022-07-10] MEDS: guaiFENesin/D-METHORPHAN HB 10 ML UNIT-DOSE CUPS PO SCH ×2 (06:00→17:57)
[2022-07-10 09:28] VITALS: RESP 18
[2022-07-10] MEDS: MIDODRINE HCL 2.5 MG TABLET PO SCH ×2 (09:44→19:15)
[2022-07-10] MEDS: APIXABAN 5 MG TABLET PO SCH (09:44)
[2022-07-10] MEDS: DIGOXIN 0.125 MG TABLET PO SCH (09:44)
[2022-07-10] MEDS: FUROSEMIDE 20 MG TABLET (FP) PO SCH (09:44)
[2022-07-10] MEDS: predniSONE 10 MG TABLET (UD) PO SCH (09:45)
[2022-07-10] MEDS: SENNOSIDES 8.6MG TABLET (FP) PO SCH (09:45)
[2022-07-10] MEDS: FLUTICASONE/UMECLIDIN/VILANTER(100-62.5-25 TRELEGY ELLIPTA) INAHLER IH SCH (09:48)
[2022-07-10 12:53] VITALS: BP 128/77; PULSE 105; TEMP 97.3
== END 2022-07-10 17:45 | disposition home health service (06) | DRG 193 ==
LOC: FER 16:44 → FM/S 22:53
PROVIDERS: ADMIT Student in an Organized Health Care Education/Training Program; ATTEND Family Medicine
DX: J18.9 Pneumonia, unspecified organism (principal); U07.1 COVID-19; J44.0 Chronic obstructive pulmonary disease with (acute) lower respiratory infection; K57.32 Diverticulitis of large intestine without perforation or abscess without bleeding; J98.11 Atelectasis; J90 Pleural effusion, not elsewhere classified; I50.32 Chronic diastolic (congestive) heart failure; I11.0 Hypertensive heart disease with heart failure; M54.50 Low back pain, unspecified; I48.91 Unspecified atrial fibrillation; R26.81 Unsteadiness on feet; E78.00 Pure hypercholesterolemia, unspecified; R09.02 Hypoxemia; Z85.118 Personal history of other malignant neoplasm of bronchus and lung
CPT/HCPCS: 36415; 71045-TC-FY; 71275-TC; 74177-TC; 80048; 80053; 80162; 83735; 83880; 84100; 84443; 84484; 85025; 85027; 85379; 87040; 87070; 87205; 87899; 93005; 93306-TC; 97116-GP; 97162-GP; 99285-25; C9803-CS; Q9967; U0003; U0005